=== PATIENT | male | born 1970 | race Caucasian/White ===

== ENCOUNTER → 2023-06-16 06:34 | Day surgery (SDC) | payer MEDICARE, SELFPAY | LOC: GI 06:34 | PROVIDERS: ATTENDING PHYSICIAN Internal Medicine Gastroenterology | DX: Z12.11 Encounter for screening for malignant neoplasm of colon (principal); K64.8 Other hemorrhoids; Q43.8 Other specified congenital malformations of intestine; D12.0 Benign neoplasm of cecum; D12.2 Benign neoplasm of ascending colon; D12.5 Benign neoplasm of sigmoid colon; D12.4 Benign neoplasm of descending colon; D72.820 Lymphocytosis (symptomatic); Z86.010 Personal history of colon polyps; F17.210 Nicotine dependence, cigarettes, uncomplicated | CPT/HCPCS: 45385; 45380; 88305; 88341; 88342 ==

== ENCOUNTER → 2023-09-02 | Outpatient (REF) | payer MEDICARE, SELFPAY | LOC: DHSLP | PROVIDERS: ATTENDING PHYSICIAN Otolaryngology; FAMILY PHYSICIAN Family Medicine | DX: G47.33 Obstructive sleep apnea (adult) (pediatric) (principal) | CPT/HCPCS: 95810 ==

== ENCOUNTER → 2024-01-31 10:41 | Outpatient (REF) | payer MEDICARE, OTHER, SELFPAY | LOC: RAD 10:41 | PROVIDERS: ATTENDING PHYSICIAN Physical Medicine & Rehabilitation; FAMILY PHYSICIAN Family Medicine | DX: M54.2 Cervicalgia (principal); M47.816 Spondylosis without myelopathy or radiculopathy, lumbar region | CPT/HCPCS: 72052; 72110 ==

== ENCOUNTER → 2024-02-04 12:37 | Outpatient (REF) | payer MEDICARE, OTHER, SELFPAY | LOC: RAD 12:37 | PROVIDERS: ATTENDING PHYSICIAN Internal Medicine Critical Care Medicine; FAMILY PHYSICIAN Family Medicine | DX: F17.210 Nicotine dependence, cigarettes, uncomplicated (principal) | CPT/HCPCS: 71271 ==

== ENCOUNTER → 2024-05-23 09:44 | Outpatient (REF) | payer MEDICARE, OTHER, SELFPAY | LOC: RAD 09:44 | PROVIDERS: ATTENDING PHYSICIAN Specialist; FAMILY PHYSICIAN Family Medicine | DX: N20.0 Calculus of kidney (principal) | CPT/HCPCS: 74018; 76775 ==

== ENCOUNTER → 2024-06-07 10:00 | Outpatient (REF) | payer MEDICARE, OTHER, SELFPAY | LOC: RAD 10:00 | PROVIDERS: ATTENDING PHYSICIAN Specialist; FAMILY PHYSICIAN Family Medicine | DX: N20.0 Calculus of kidney (principal) | CPT/HCPCS: 74176 ==

== ENCOUNTER 2024-07-29 21:16 | Inpatient (IN) | payer MEDICARE, OTHER, SELFPAY ==
[2024-07-29 15:56] VITALS: BP 130/74
[2024-07-29 16:12] LABS: % Basophils 0.2 % (0-2); % Immature Granulocytes 0.5 % (0-0.5); % Lymphocytes 17.7 % (20.5-51.1); % Neutrophils 73.6 % (42.2-75.2); Absolute Immature Granulocytes 0.1 10^3/uL (0-0.05); Absolute Lymphocytes 2.9 10^3/uL (1.2-3.4); Absolute Monocytes 1.3 10^3/uL (0.1-0.6); Absolute Neutrophils 12.2 10^3/uL (1.4-6.5); Hematocrit 44.2 % (39.0-52.0); Hemoglobin 15.3 g/dL (13.0-18.0); Mean Corp Hgb Conc. 34.6 g/dL (33.0-37.0); Mean Corpuscular Volume 89.5 fL (80.0-94.0); Mean Platelet Volume 9.1 fL (7.4-10.4); Nucleated Red Blood Cells % 0 % (-); Platelet Count 196 10^3/uL (130-400); Red Blood Cell Count 4.94 10^6/uL (4.70-6.10); Red Cell Dist. Width 14.8 % (11.5-14.5); White Blood Cell Count 16.5 10^3/uL (4.8-10.8)
[2024-07-29 16:43] LABS: ALT (SGPT) 82 U/L (0-50); AST (SGOT) 40 U/L (17-59); Albumin 4.9 g/dl (3.5-5.0); Alkaline Phosphatase 55 U/L (38-126); Blood Urea Nitrogen 24 mg/dl (9-20); Calcium 10.3 mg/dl (8.4-10.2); Carbon Dioxide 20 mmol/L (22-30); Chloride 108 mmol/L (98-107); Glucose 120 mg/dl (70-99); Potassium 4.2 mmol/L (3.5-5.1); Sodium 143 mmol/L (135-145); Total Bilirubin 0.5 mg/dl (0.2-1.3); Total Protein 7.6 g/dl (6.3-8.2); eGFR > 60.00
[2024-07-29 16:51] LABS: Lipase 33 U/L (23-300)
[2024-07-29] MEDS: ZOFRAN 4 MG IV (17:20)
[2024-07-29] MEDS: NSS 1000 IV ×2 (17:20→20:36)
[2024-07-29] MEDS: DILAUDID 0.5 MG IV (17:21)
[2024-07-29] MEDS: OMNIPAQUE 50 ML PO (17:21)
[2024-07-29 17:24] VITALS: BP 124/80
[2024-07-29 18:00] VITALS: BP 96/77
[2024-07-29] MEDS: BENADRYL 50 MG IV (18:31)
[2024-07-29] MEDS: DECADRON 8 MG IV (18:31)
[2024-07-29 19:00] VITALS: BP 135/78
--- NOTE | 2024-07-29 20:09 | ED.GENMED ---
History of Present Illness
General
Chief Complaint: Abdominal Pain
Source: patient
Exam Limitations: none
Time Seen by Provider: 07/29/24 16:27
Nursing documentation reviewed up to this point in time: agreed with
History of Present Illness
History of Present Illness:
Patient to ED with complaint of diffuse abd. pain, vomiting since last PM. Denies fever/chills. No prior history of same. Denies any diarrhea. No sick contacts. Brought self to ED.
Past History
Past History
ED Past Medical History: Hypercholesterolemia and Psychiatric
ED Past Surgical History: None
Social History
Tobacco: Smoker
Alcohol: Occasional
Personal: Single
Living: alone
Family History
Family History: Other
Review of Systems
Review of Systems
Allergies reviewed?: Yes
All Other Systems: ROS reviewed and negative except as documented in HPI and ROS
Constitutional: Reports no symptoms
EENT: Reports no symptoms
Respiratory: Reports no symptoms
Cardiac: Reports no symptoms
ABD/GI: Reports abdominal pain (diffuse) and vomiting
: Reports no symptoms
Musculoskeletal: Reports no symptoms
Skin: Reports no symptoms
Neurological: Reports no symptoms
Psychiatric: Reports no symptoms
Phy Exam
General Physical Exam
General Presentation: moderate distress
General age: appears stated age
General Skin: warm and dry
General Habitus: normal
General Mental: alert
Cardiovascular Exam
Cardiovascular Exam: regular rate/rhythm
Pulmonary Exam
Pulmonary Exam: lungs clear and no respiratory distress
Gastrointestinal Exam
Gastrointestinal Exam: soft, no organomegaly and no pulsatile mass
Palpation: generalized: Moderate tenderness
Musculoskeletal Exam
Musculoskeletal Exam: full ROM and neuro vasc intact
Skin Exam
Skin Exam: normal color, warm/dry and no rash
Psychiatric Exam
Psychiatric Exam: normal mood/affect
Course
Orders/Labs/Results
Orders:
Orders
07/29/24 Dinner
NPO
Allow oral meds: No
Allow clear liquids: No
07/29/24 16:01
Complete Blood Count/With Diff Urgent
Comprehensive Metabolic Panel Urgent
Lipase Urgent
07/29/24 16:44
0.9% Sodium Chloride 1000 ml [Nss] 1,000 ml IV BOLUS
HYDROmorphone [Dilaudid] 0.5 mg IV NOW STA
Ondansetron Injectable [Zofran] 4 mg IV NOW STA
07/29/24 16:52
CT Abd/pel W Iv And Oral Contr Urgent
Comment:
Reason For Exam: diffuse abd. pain vomiting
Iohexol [Omnipaque] See Protocol PO NOW STA
07/29/24 16:53
Diphenhydramine [Benadryl] 50 mg IV NOW STA
07/29/24 16:57
Dexamethasone Sod Phosphate [Decadron] 8 mg IV NOW STA
07/29/24 20:21
Consult Surgery [SURGICAL CONSULT] Urgent
Consulting Provider: Jersey Trimble
Was physician already notified: Yes
07/29/24 20:27
NG Tube [GI tube insertion- Treatment] ONCE
07/29/24 20:30
0.9% Sodium Chloride 1000 ml [Nss] 1,000 ml IV 125 mls/hr
07/29/24 20:42
Lactic Acid Urgent
07/29/24 20:47
Admit/Transfer Patient As Directed
Co-Sign Provider:
Level of Care: Inpatient admission
Assign to:: Medical/Surgical
Physician / Group: hospitalist
Diagnosis: small bowel obstruction
Reason for Hospitalization: small bowel obstruction
Expected length of stay greater than two midnights?: Yes
ELOS- Estimated Length of Stay in days: 2
I certify the patient meets the requirements for IP care: Yes
PRN Pain Medication Management As Directed
May give lesser potent ordered pain med per pt: Yes
preference::
Protocol:: Medication orders for pain may be administered in a
manner that supports deferring to patient preference
when the pt is:
- Requesting an ordered lesser potent pain medication.
Least to most potent pain medications are defined
as: acetaminophen < NSAID < tramadol < opioids
(morphine, oxycodone, hydromorphone).
- Requesting a lesser dose of the same medication IF
ORDERED.
- Requesting a less intrusive route of administration
if both routes are prescribed by the provider (PO <
IV).
07/29/24 20:48
Code Status As Directed
Resuscitation Status: Full Code
07/29/24 21:08
CR Chest Portable - 1 View Stat
Comment:
Reason For Exam: NG tube placement
Reason Study Needs to be Portable: Other
If Reason is Other, explain: can't transport, connected to wall suction
07/29/24 22:05
Acetaminophen [Tylenol/Feverall] 650 mg RECTAL Q4HPRN PRN
HYDROmorphone [Dilaudid] 0.5 mg IV Q4HPRN PRN
Ketorolac [Toradol] 10 mg IV Q6HPRN PRN
Lactated Ringers [Lr] 1,000 ml IV 150 mls/hr
Ondansetron Injectable [Zofran] 4 mg IV Q6HPRN PRN
Tamsulosin [Flomax] 0.8 mg TUBE HS
Valproate Sodium [Depacon] 1,000 mg 0.9% Sodium Chloride 50 ml [Nss] 50 ml IV Q12H
07/29/24 22:05
Activity As Directed
Activity Level: With Assistance
Bedside Glucose Monitoring As Directed
Frequency: Q6H
Gastrointestinal Tubes As Directed
To suction?: Yes
Type of suction: Low intermittent
Vital Signs As Directed
Frequency: Per unit guidelines
Pulse Ox/spot Check [RESP] Routine
Quantity: 1
DX Deep Vein Thrombosis Video Routine
07/29/24 23:00
Clozapine [Clozaril] 600 mg TUBE HS
07/30/24 00:00
Heparin 5,000 units SC Q8
Insulin Aspart Corrective Low [Novolog Flexpen-Low Resistance] See Protocol SC Q6
07/30/24 06:00
Basic Metabolic Panel IN AM
Complete Blood Count/No Diff IN AM
Magnesium IN AM
07/30/24 08:00
Pantoprazole [Protonix IV] 40 mg IV DAILY
Abnormal Lab Results
07/29/24
16:01
WBC 16.5 H 10^3/uL
(4.8-10.8)
RDW 14.8 H %
(11.5-14.5)
Abs Immat Gran (auto) 0.1 H 10^3/uL
(0-0.05)
Absolute Neuts (auto) 12.2 H 10^3/uL
(1.4-6.5)
Absolute Monos (auto) 1.3 H 10^3/uL
(0.1-0.6)
Lymphocytes % 17.7 L %
(20.5-51.1)
Chloride 108 H mmol/L
(98-107)
Carbon Dioxide 20 L mmol/L
(22-30)
BUN 24 H mg/dl
(9-20)
Glucose 120 H mg/dl
(70-99)
Calcium 10.3 H mg/dl
(8.4-10.2)
ALT 82 H U/L
(0-50)
07/29/24 16:01
07/29/24 16:01
Vital Signs
Initial and Last Documented VS:
Initial Vital Signs
Temp Pulse Resp BP Pulse Ox
98.5 F 116 18 130/74 98
07/29/24 15:56 07/29/24 15:56 07/29/24 15:56 07/29/24 15:56 07/29/24 15:56
Last Documented Vital Signs
Temp Pulse Resp BP Pulse Ox
98.7 F 94 16 133/79 95
07/29/24 22:25 07/29/24 22:25 07/29/24 22:25 07/29/24 22:25 07/29/24 22:25
*Radiology
Radiology exam reviewed: radiology read reviewed
*Pulse Oximetry
Patient hypoxic: no
*Critical Care Note
Total Time (30-74mins, 75-104mins- exclusive of procedures): Not Applicable
Update Note
Update Note:
Patient to ED with complaint of vomiting x 24 hours, diffuse abd. pain. Labs reviewed. WBC 16. CT tonight: SBO. He has received IVF, zofran, pain meds in ED. No vomiting while in ED, however abd. distention noted on CT report, NGT placed. He
is admitted to hospitalist service. Dr. Trimble consulted
ED Attending Note
-
Portions of this chart may have been created with voice recognition software.� Occasional wrong word or��sound alike� substitutions may have occurred due to the inherent limitations of voice recognition software.
Discharge Plan
Departure
Patient Disposition: Admit
Date of Disposition: 07/29/24
Time of Disposition: 20:17
Presentation/result/management discussed w/ accepting MD/DO: Hospitalist
Condition: Fair
Covid-19: Not Applicable
Discharge Problem:
SBO (small bowel obstruction)
Interventions
Interventions:
*Risk Screen - Suicide Last Done: 07/29/24 15:56
*General Assessment Last Done: 07/29/24 15:56
*Neglect/Abuse Screening Last Done: 07/29/24 15:56
*ED- Fall Risk Assessment Last Done: 07/29/24 15:56
*ED COVID-19 Vaccine History Last Done: 07/29/24 15:56
*Nursing Disposition Last Done: 07/29/24 21:55
DN-Bawfpj-Yfkjvnkeyj Assessment Last Done: 07/29/24 17:11
Discharge Date and Time
Discharge Date/Time: 07/29/24 21:55
--- NOTE | 2024-07-29 20:27 | HPS.HSE ---
Family Physician
-
Family Physician: Doni Sheth
Chief Complaint
-
Vomiting and abdominal pain
History of Present Illness
This is a 54-year-old with past medical history significant for schizophrenia, hypertension, asthma, nephrolithiasis presenting to the emergency department with approximately 1 day history of abdominal symptoms.
Patient reports sudden onset of abdominal pain localized to the periumbilical region. He states there was associated nausea and vomiting. He tells me that the vomiting was nonbloody. It appears to be bilious but he is unable to specify further.
He did take some MiraLAX open to improve his symptoms but there was no improvement. He denies having any fevers or chills.
Patient denies any alcohol use. He denies history of gallstones. He denies any history of intra-abdominal surgery. He has no known history of inflammatory bowel disease. He denies any cardiac history.
On arrival in the emergency department he was afebrile, blood pressure was 135/78 with a pulse of 116 and he was satting 98% on room air. He had a white count of 16.5, hemoglobin platelets were normal. Electrolytes were all normal. BUN/creatinine
were normal. Calcium was elevated 10.3. Albumin was 4.9. LFTs unremarkable. Lipase normal.
CT of the abdomen pelvis shows small bowel obstruction with transition point in the right side of the mid abdomen between distended proximal small bowel loops and collapsed distal ileal small bowel loops. And that there is a band is still likely
etiology of the obstruction. There is severe distention of the jejunal small bowel loops and the stomach.
Medical History
Past Medical History
Past Medical History: Reports Asthma, Hypercholesterolemia, Psychiatric (Schizophrenia) and Other (Nephrolithiasis)
Past Surgical History: Reports Tonsilectomy ( plus uvulectomy for sleep apnea) and Other (Tongue resection)
Social History
Tobacco: Smoker (1 ppd)
Alcohol: None
Drug: None
Personal: Single
Family History
Family History: Not pertinent
Allergies / Home Medications
Allergies reflects when Allergies were last updated in [employer].
Home Medications with original date entered in [employer]
Allergy/Medication List:
Allergies
Allergy/AdvReac Type Severity Reaction Status Date / Time
haloperidol [From Haldol] Allergy jaw locks Verified 07/29/24 15:56
haloperidol lactate Allergy jaw locks Verified 07/29/24 15:56
[From Haldol]
Iodinated Contrast Media Allergy CONTRAST-HI Verified 07/29/24 15:56
[IV Dye, Iodine Containing VES
Contrast ]
lithium [[place]] Allergy 'feels Verified 07/29/24 15:56
sick'
can't sleep
olanzapine [From Zyprexa] Allergy hyperactivi Verified 07/29/24 15:56
ty
Penicillins Allergy 'doesn't Verified 07/29/24 15:56
feel well'
quetiapine fumarate Allergy 'feels Verified 07/29/24 15:56
[From Seroquel] sick'
can't sleep
risperidone [From Risperdal] Allergy 'doesn't Verified 07/29/24 15:56
feel
well',
can't sleep
Home Medications
clozapine 100 mg tablet 600 mg PO HS 09/04/11
docusate sodium 100 mg capsule 100 mg PO BID 10/29/11
M.V.I. Adult 1 tab PO DAILY 07/29/24
Miralax 17 packet PO DAILY 07/29/24
clozapine 600 mg PO HS 07/29/24
divalproex 500 mg tablet,extended release 24 hr 1,000 mg PO BID 07/29/24
glipizide 5 mg tablet 5 mg PO BID 07/29/24
lisinopril 5 mg PO DAILY 07/29/24
methocarbamol 500 mg PO BID 07/29/24
rosuvastatin 10 mg PO DAILY 07/29/24
tamsulosin 0.8 mg PO DAILY@1800 07/29/24
Review of Systems
-
History Source: Patient
Constitutional: Reports No Symptoms
EENT: Reports No Symptoms
Respiratory: Reports No Symptoms
Cardiac: Reports No Symptoms
Abdomen/GI: Reports Abdominal Pain and Vomiting
: Reports No Symptoms
Musculoskeletal: Reports No Symptoms
Skin: Reports No Symptoms
Neurological: Reports No Symptoms
Endocrine: Reports No Symptoms
Hematologic/Lymphatic: Reports No Symptoms
Psych: Reports No Symptoms
Physical Exam
Vital Signs
Vital Signs
Temp Pulse Resp BP Pulse Ox
98.5 F 116 18 135/78 98
07/29/24 15:56 07/29/24 15:56 07/29/24 15:56 07/29/24 19:00 07/29/24 15:56
Physical Exam
General: Well Developed, Well Nourished, No Apparent Distress and Comfortable
HEENT: NormoCephalic, Anicteric, Moist mucous membranes and Atraumatic
Respiratory: Clear
Cardiac: S1/S2 and Tachycardia
Breast: Deferred by me
GI: Non Tender and Non Distended; No Normal Bowel Sounds (Decreased bowel sounds noted throughout)
Rectal: Deferred by Provider
Genito-urinary: Deferred by me
Musculoskeletal: No Clubbing, No Cyanosis and No Edema
Skin: Warm
Neuro: AO x 3 and Nonfocal/grossly intact
Hematologic/Lymphatic: No Lymphadenopathy
Psych: Calm
Laboratory Results
-
07/29/24 16:01
07/29/24 16:01
Laboratory Results
Total Bilirubin 0.5 mg/dl (0.2-1.3) 07/29/24 16:01
AST 40 U/L (17-59) 07/29/24 16:01
ALT 82 U/L (0-50) H 07/29/24 16:01
Alkaline Phosphatase 55 U/L (38-126) 07/29/24 16:01
Lipase 33 U/L (23-300) 07/29/24 16:01
Data Reviewed
-
CT Scan: Report Reviewed by me
Lab Data: Labs Reviewed by me
Old Records: Reviewed
Impression/Plan
-
IMPRESSION:
54-year-old with history of asthma, schizophrenia on antipsychotic medications who presents to the emergency department with acute onset of abdominal pain and vomiting found to have a small bowel obstruction. Per CT scan the small bowel obstruction
is on the basis of adhesion. However patient denies any history of intra-abdominal surgery. He had a colonoscopy within the last year which showed polyps but otherwise no evidence of intermittent inflammatory bowel disease. Patient denies
inflammatory bowel disease symptoms. Patient denies any history of congenital disorders. In no clinical basis for additions in this patient. Radiology is mildly considered. However he has no signs of inflammatory bowel disease. He has no signs
of an acute infection. There are no masses noted on the CT scan. Given a transition point unlikely ileus and no basis for ileus with negative gallstones normal pancreas and normal lipase and lfts as well as no culprit medications.
PLAN:
SBO -thought to be in the base of adhesions but no clinical history consistent with this. No intussusception and no other obstructive/compressive findings on the CT scan. No history of peripheral arterial disease but cannot rule out an ischemic
process though very unlikely.
- admit to med surg
- check lactic acid levels
- given degree of distension of the proximal gi, will start NG tube decompression
- NPO except selected meds (clozapine), pain control and antiemetics
- other meds as IV or appropriately held
- maintenance IV fluids
- surgery consulted and aware
Schizophrenia - Stable
- continue clozapine 600mg hs via tube with appropriate clamping
- valproic acid as IV q 12 for divalproex 1g po q 12
DM II
- holding glipizide and statin
- sliding scale insulin q 6
HTN
- holding lisinopril 5 for now, monitor bp
DVT PPX - heparin sq
Code status - Full Code
[2024-07-29 21:03] LABS: Lactic Acid 0.7 mmol/L (0.7-2.0)
[2024-07-29 22:25] VITALS: BP 133/79
[2024-07-29] MEDS: CLOZARIL 600 MG TUBE (22:45)
[2024-07-29] MEDS: FLOMAX 0.8 MG TUBE (22:45)
[2024-07-29] MEDS: LR 1000 IV (22:54)
[2024-07-29] MEDS: DEPACON 60 MG IV (22:58)
[2024-07-29 23:12] LABS: Glucose - Point of Care 132 mg/dl (70-99)
[2024-07-29 23:47] VITALS: BP 146/84
--- NOTE | 2024-07-30 | PTCARENOTE ---
Pt arrived 2109 from ED. Pt was able to ambulate into room. VSS. NGT to low intermittent suction at 65. IVF infusing. Head to toe assessment complete along with admission questions. Upon admission screening Pt had positive suicide screening. García
SECONDARY HISTORY TEACHER notified, and 1:1 implemented.
--- NOTE | 2024-07-30 00:10 | W.PN.UPDATE ---
Update Note
Progress Note Update
Patient asked suicide screening questions by RN on admission to floor, scored as mild risk. Orders placed for 1:1 and psych evaluation. RN notified Nursing distribution operation supervisor, 1:1 sent and at bedside.
[2024-07-30] MEDS: HEPARIN 5000 UNITS SC ×4 (00:17→23:14)
[2024-07-30 05:32] LABS: Glucose - Point of Care 119 mg/dl (70-99)
[2024-07-30] MEDS: LR 1000 IV ×3 (06:17→20:32)
[2024-07-30 06:30] LABS: Hematocrit 39.3 % (39.0-52.0); Hemoglobin 13.5 g/dL (13.0-18.0); Mean Corp Hgb Conc. 34.4 g/dL (33.0-37.0); Mean Corpuscular Hgb 31.1 pg (27.0-31.0); Mean Corpuscular Volume 90.6 fL (80.0-94.0); Mean Platelet Volume 9.9 fL (7.4-10.4); Platelet Count 171 10^3/uL (130-400); Red Blood Cell Count 4.34 10^6/uL (4.70-6.10); Red Cell Dist. Width 14.7 % (11.5-14.5); White Blood Cell Count 11.9 10^3/uL (4.8-10.8)
[2024-07-30 07:15] VITALS: BP 125/66
[2024-07-30 07:20] LABS: Blood Urea Nitrogen 22 mg/dl (9-20); Calcium 9.2 mg/dl (8.4-10.2); Carbon Dioxide 24 mmol/L (22-30); Chloride 107 mmol/L (98-107); Glucose 109 mg/dl (70-99); Magnesium 1.9 mg/dl (1.6-2.3); Potassium 4.5 mmol/L (3.5-5.1); Sodium 143 mmol/L (135-145); eGFR > 60.00
[2024-07-30] MEDS: PROTONIX IV 40 MG IV (08:12)
[2024-07-30] MEDS: NSS (PRESERVATIVE FREE) 10 ML IV (08:13)
--- NOTE | 2024-07-30 08:51 | W.PN.HOSP.TC ---
Addendum entered and electronically signed by Cody Abbasi MD 07/30/24 09:06:
positive suicidal ideation on admission screening
- 1:1 continues
- psych consulted
Original Note:
Today's Communication/Plan
-
see outlined plan
Assessment / Plan
Assessment / Plan
Assessment:
distended proximal bowel loops and stomach
- possible SBO raised by CT read: SMALL BOWEL OBSTRUCTION with a transition point in the right side of the midabdomen between distended proximal small bowel loops and collapsed distal ileal small bowel loops. An adhesive band is the likely etiology
of the obstruction. Severe distention of jejunal small bowel loops and the stomach.
- no prior history to suggest adhesional disease (no surgery prior)
- d/w Gen surgery
- conservative management
- continue NGT
- NPO/IVF. select meds ok
- pain control and anti-emetics
- AXR today and SBFT in AM
Schizophrenia - Stable
- continue clozapine 600mg hs via tube with appropriate clamping
- valproic acid as IV q 12 for divalproex 1g po q 12
DM II
- holding glipizide and statin
- sliding scale insulin q 6
- A1c:
HTN
- holding lisinopril 5 for now, monitor bp
DVT PPX: SC heparin
Code: Full
Anticipated Discharge: > 48 hours
Subjective/Interval History
-
Date of Service: July 30, [address]
reports minimal pain
no nausea
no fevers
Objective Data
-
Labs:
Laboratory Results
07/30/24
05:09
WBC 11.9 H
Hgb 13.5
Hct 39.3
Plt Count 171
Sodium 143
Potassium 4.5
Chloride 107
Carbon Dioxide 24
BUN 22 H
Creatinine 0.8
Glucose 109 H
Calcium 9.2
Vital Signs:
Vital Signs
Temp Pulse Resp BP Pulse Ox
97.9 F 92 16 125/66 98
07/30/24 07:15 07/30/24 07:15 07/30/24 07:15 07/30/24 07:15 07/30/24 07:15
I&O
07/29/24 07/30/24 07/31/24
06:59 06:59 06:59
Intake Total 1550 / 1550
Output Total 1675 / 1675
Balance -125 / -125
Physical Exam
-
General: No Apparent Distress
HEENT: Normocephalic and Atraumatic
Respiratory: Negative Wheezes
Cardiac: Regular Rhythm and S1/S2
GI: Soft and Nontender
Genito-urinary: No Costovertebral Tender
Neuro: AO x 3
Psych: Calm
Data Reviewed
-
Total Time Spent with Patient (in minutes): 42
Labs: Labs Reviewed by me
--- NOTE | 2024-07-30 10:15 | CON.GS ---
Consultation
-
Date/Time Consultation Performed: 07/30/2024
Performing Provider: Atilio
Reason for Consultation: Small bowel obstruction
Medical History
-
Chief Complaint: Abdominal pain, nausea vomiting
History of Present Illness:
Patient is a pleasant 54-year-old male who presented to the emergency department for evaluation of worsening abdominal pain, distention and nausea/vomiting.
His medical history is mainly notable for schizophrenia/psychiatric for which he follows at [facility]. He states that the only recent change in his medications has been with his muscle relaxant methocarbamol dose that has been recently increased.
He seems to be able to provide an accurate/reliable history indicating that over the last week or so he has been having slowly progressive GI symptoms. It started with change in bowel habits and not having as regularly. He typically takes MiraLAX
daily which he has continued to do. Over the past couple days he has developed anorexia and nausea and worsening abdominal distention rather gradual in onset. It progressed into severity yesterday that he presented for emergency department
evaluation due to diffuse abdominal pain and subsequent nausea and vomiting.
No similar episode like this in the past. No past abdominal surgical history.
Patient states he is feeling much better this a.m. after NG tube decompression. Abdominal pressure has subsided. Denies abdominal pain. No further nausea or vomiting. No flatus or bowel movements reported overnight.
Past Medical History
Past Medical History: Other (Schizophrenia, hypercholesterolemia, history of nephrolithiasis)
Past Surgical History: Other (Ureteroscopy/ESWL, resection of a tongue lesion, adenoidectomy, tonsil and uvulectomy for sleep apnea, myringotomy tubes)
Social History
Tobacco: Vaping
Personal: Single
Living: With Roomate
Family History
Family History: Reviewed & Not Pertinent
Allergies / Home Medications
Allergy/AdvReac Type Severity Reaction Status Date / Time
haloperidol [From Haldol] Allergy jaw locks Verified 07/29/24 15:56
haloperidol lactate Allergy jaw locks Verified 07/29/24 15:56
[From Haldol]
Iodinated Contrast Media Allergy CONTRAST-HI Verified 07/29/24 15:56
[IV Dye, Iodine Containing VES
Contrast ]
lithium [[place]] Allergy 'feels Verified 07/29/24 15:56
sick'
can't sleep
olanzapine [From Zyprexa] Allergy hyperactivi Verified 07/29/24 15:56
ty
Penicillins Allergy 'doesn't Verified 07/29/24 15:56
feel well'
quetiapine fumarate Allergy 'feels Verified 07/29/24 15:56
[From Seroquel] sick'
can't sleep
risperidone [From Risperdal] Allergy 'doesn't Verified 07/29/24 15:56
feel
well',
can't sleep
�Medication �Instructions �Recorded �Confirmed �Type
clozapine 100 mg tablet 600 mg PO HS 09/04/11 10/29/11 History
docusate sodium 100 mg capsule 100 mg PO BID 10/29/11 07/29/24 History
M.V.I. Adult 1 tab PO DAILY 07/29/24 07/29/24 History
Miralax 17 packet PO DAILY 07/29/24 07/29/24 History
clozapine 600 mg PO HS 07/29/24 07/29/24 History
divalproex 500 mg tablet,extended 1,000 mg PO BID 07/29/24 07/29/24 History
release 24 hr
glipizide 5 mg tablet 5 mg PO BID 07/29/24 07/29/24 History
lisinopril 5 mg PO DAILY 07/29/24 07/29/24 History
methocarbamol 500 mg PO BID 07/29/24 07/29/24 History
rosuvastatin 10 mg PO DAILY 07/29/24 07/29/24 History
tamsulosin 0.8 mg PO DAILY@1800 07/29/24 07/29/24 History
Review of Systems
-
History Source: Patient
All other systems: Negative unless noted
A 10 point review of systems was completed, and was negative except as per HPI.
Physical Exam
Vital Signs
Temp Pulse Resp BP Pulse Ox
97.9 F 92 16 125/66 98
07/30/24 07:15 07/30/24 07:15 07/30/24 07:15 07/30/24 07:15 07/30/24 07:15
07/29/24 07/30/24 07/31/24
06:59 06:59 06:59
Actual Weight 119 kg
Lab Results
07/30/24 05:09
07/30/24 05:09
WBC 11.9 10^3/uL (4.8-10.8) H 07/30/24 05:09
Hgb 13.5 g/dL (13.0-18.0) 07/30/24 05:09
Hct 39.3 % (39.0-52.0) 07/30/24 05:09
Plt Count 171 10^3/uL (130-400) 07/30/24 05:09
Abs Immat Gran (auto) 0.1 10^3/uL (0-0.05) H 07/29/24 16:01
Neutrophils % 73.6 % (42.2-75.2) 07/29/24 16:01
Physical Exam
General: Well Developed, Well Nourished, No Apparent Distress, Comfortable and Other (Lying in hospital bed. Pleasant and participatory for history taking.)
HEENT: Normocephalic, Anicteric, Moist Mucous Membranes and Other (Nasogastric tube in place and secured)
Respiratory: Non Labored Respirations
Cardiac: Regular Rhythm
GI: Soft, Non Distended and Tender (Slight tenderness on palpation but not localizing. No rebound, no rigidity, no guarding.)
Skin: Warm
Neuro: AO x 3
Psych: Calm
Data Reviewed
-
CT Scan: Image Personally Visualized and interpreted, Report Reviewed by me, Discussed with Physician and Discussed with Patient
Labs: Labs Reviewed by me
Assessment / Plan
-
Assessment: 54-year-old male presenting with symptoms and CT imaging suggestive of small bowel obstruction versus ileus.
Personally reviewed and interpreted CT imaging. Significant gastric and proximal small bowel distention. While there does appear to be a transition point probably in the right lower quadrant I do not see any abrupt transition rather there seems to
be smooth distal tapering to decompressed small bowel. There is no swirling of the mesentery suggestive of internal hernia or volvulus. There is no pneumatosis, portal venous gas or mesenteric venous gas. There is no small bowel wall thickening.
No free air. No free fluid/ascites.
White blood cell count has improved to 11.9, there is no bandemia. Chemistry panel without acidosis, normal creatinine. Lactic acid normal yesterday evening. Lipase normal.
There are no clinical signs of immediate bowel compromise or threat and patient has significantly improved with NG tube decompression and IV fluid hydration overnight. Given clinical stability there are no strong indications for emergent/urgent
surgical intervention. Uncertain etiology to the patient's presentation whether it is related to adhesions in the setting of no prior abdominal surgery versus adynamic ileus which may be medication related.
Plan: Recommend continued aggressive IV fluid hydration
Maintain NG tube decompression but okay to give important psychiatric meds via NG tube and clamp
Will obtain abdominal x-ray today to see if there is progression of oral contrast from yesterday's films into the distal small bowel or colon.
Subsequent surgical plan depending course over the next 24 hours. If there are high NG tube outputs or symptoms suggestive of persistent high-grade obstruction then would consider diagnostic laparoscopy. If clinical improvement then we will likely
pursue small bowel follow-through imaging.
Will follow
Discussed with hospitalist service as well.
Called and left left voicemail message for patient's sister Lori as per patient's request
--- NOTE | 2024-07-30 10:49 | CM ---
restaurant hourly manager reviewed patient's chart and met with patient and patient reports that he made a mistake when he answered suicide questions as he was feeling poorly. Patient is a resident at [facility] residential program. Patient reports
he is independent with adl's and ambulation, no dme.
PCP: Dr. Doni Sheth
Pharmacy: [facility]
Plan; Await psychiatry evaluation for any needs at discharge.
[2024-07-30 11:15] VITALS: BMI 34.6
[2024-07-30] MEDS: DEPACON 60 MG IV ×2 (11:50→21:53)
[2024-07-30 12:01] LABS: Glucose - Point of Care 107 mg/dl (70-99)
[2024-07-30] MEDS: NICODERM TRANSDERMAL 21 MG TRANSDERM (12:23)
--- NOTE | 2024-07-30 13:35 | CON.MD ---
Consultation - Medical
-
patient seen chart reviewed. this consult was ordered given patient response to suicide screening. he indicated he had had vague thoughts but denied to me that he has acted or would ever act on suicidality. 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 he
is here bc abd pain n/v. he was found to have bowel blockage likely secondary to fecal matter .clozaril is notoriously constipating and he is taking 600 mg. he does say he takes miralax regularly. patient was poeasant and cooperative but he was
not a great historian. i do know he last saw the act team a few days ago. he has hx of psychotic illness but in talking to him i could not get a handle on the sx he has suffered eg hallucinations delusions etc. he answered no to my ? of hearing
voices and seemed more preoccupied with being rather dysphoric. sleep is ok appetite is ok. he enjoys some activities. current meds depakote 1000 mg bid clozaril 600 mg daily he does not know if a blood level of these meds was done recently.
past psych hx patient has been hospitalized in the past last about 2.5 years ago has been out pt w [facility] since them act programming allergy seroquel lithium zyprexa haldol risperdone allegedly
medical see above here for gi blockage likely in my opinion from clozaril particularly. hx hld asthma nephrolithiasis hx prostatis gerd lynn lumbar cervical pain hx tongue ca colonic polyps overweight
fh denied
substance abuse was a smoker
social resides in [employer]. 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 never no kids
mse alert ox3 cooperative not a great historian. speech nl rate tone. goal oriented but he seems to be a man of relatively few words paucity of expression can be a sx of psychotic illness aver intell mood is dysphoric affect constricted insight
judgment fair
dx schizophrenia
plan i called mr tuttle psych prescriber. no answer left message. would cut clozaril to 450 mg. level already drawn but will take more than a week to come back. manager programs also mila depakote level but since he had it this am it was be
elevated.will repeat in am. will speak to mr page re patient meds/gi obstruction. unclear if depakote needed w high dose of clozaril. dc one to one. patient is not acutely suicidal. psych will follow.
[2024-07-30 14:01] LABS: Depakane 66.8 ug/ml (50.0-120.0)
[2024-07-30 15:00] VITALS: BP 147/81
[2024-07-30 18:06] LABS: Glucose - Point of Care 101 mg/dl (70-99)
--- NOTE | 2024-07-30 18:31 | PTCARENOTE ---
'Medications Brought In By Patient' form completed, brought to pharmacy, per instructions white copy stored in Pharmacy, yellow copy placed in patient's discharge folder (in chart) as a reminder to return meds to patient at discharge.
[2024-07-30] MEDS: CLOZARIL 450 MG TUBE (22:13)
[2024-07-30] MEDS: FLOMAX 0.8 MG TUBE (22:18)
[2024-07-30 22:21] LABS: Glucose - Point of Care 104 mg/dl (70-99)
[2024-07-30 23:03] VITALS: BP 107/52
[2024-07-31] MEDS: LR 1000 IV ×3 (04:16→20:32)
[2024-07-31 06:13] LABS: Glucose - Point of Care 92 mg/dl (70-99)
[2024-07-31 07:30] VITALS: BP 136/79
--- NOTE | 2024-07-31 07:52 | W.PN.GS2 ---
Addendum entered and electronically signed by Sd Rivera MD 07/31/24 15:43:
I saw and examined the patient independently.
The resident's documentation was reviewed and I agree with the note, assessment and plan except where noted below.
Comment: This is a 54-year-old male with a history of schizophrenia who presents with abdominal pain, nausea vomiting, imaging concerning for partial small bowel obstruction versus ileus. Clinically improved, repeat abdominal plain film today shows
contrast into the colon.
Will keep an NG tube for 1 more day.
Out of bed and ambulate.
Anticipate removing NG tube tomorrow and starting on clears.
I suspect this is most likely an ileus secondary to an increase in the dose of his muscle relaxing medication.
I spent 50 minutes in total for the care of this patient today including direct patient care and counseling, reviewing labs, imaging, coordination of care, as well as documentation.
Original Note:
Today's Communication / Plan
-
SBFT
Assessment / Plan
-
54 y/o male presents with partial SBO
AFVSS
Passing gas and appears to be doing much better than yesterday
WBC downtrending
Plan:
--NG tube for bowel decompression and bowel rest - allow NG tube clamp for psych meds
--NPO
--IV fluids
--Pain meds
--Small Bowel follow through to eval SBO further as he has improved clinically significantly from yesterday
--Cont with conservative measurements
Subjective Data
-
Date of Service: July 31, 2024
Now passing gas, but no BM. No N/V and ab pain controlled. Overall feels much better than before.
Objective Data
-
Intake and Output
07/30/24 07/31/24 08/01/24
06:59 06:59 06:59
Intake Total 1550 / 1550 270 / 270
Output Total 1675 / 1675 1675 / 1675 300 / 300
Balance -125 / -125 -1405 / -1405 -300 / -300
Intake:
IV fluids (Total) 1500 / 1500
IV piggybacks 50 / 50 60 / 60
Amount instilled into GI Tube ( 210 / 210
Total)
[place] Sump 210 / 210
Output:
Gastrointestinal tube output ( 1175 / 1175 525 / 525
Total)
[place] Sump 175 / 175 525 / 525
Urine, Voided 500 / 500 1150 / 1150 300 / 300
Vital Signs
Temp Pulse Resp BP Pulse Ox
98.3 F 82 18 136/79 96
07/31/24 07:30 07/31/24 07:30 07/31/24 07:30 07/31/24 07:30 07/31/24 07:30
Calcium 9.2 mg/dl (8.4-10.2) 07/30/24 05:09
Magnesium 1.9 mg/dl (1.6-2.3) 07/30/24 05:09
Total Bilirubin 0.5 mg/dl (0.2-1.3) 07/29/24 16:01
AST 40 U/L (17-59) 07/29/24 16:01
ALT 82 U/L (0-50) H 07/29/24 16:01
Alkaline Phosphatase 55 U/L (38-126) 07/29/24 16:01
Total Protein 7.6 g/dl (6.3-8.2) 07/29/24 16:01
Albumin 4.9 g/dl (3.5-5.0) 07/29/24 16:01
Physical Exam
-
NAD
NG 525 overnight, dark bilious fluid
Slight tenderness on palpation, distended ab.
[2024-07-31] MEDS: NICODERM TRANSDERMAL 21 MG TRANSDERM (08:08)
[2024-07-31] MEDS: HEPARIN 5000 UNITS SC ×2 (08:09→17:16)
[2024-07-31] MEDS: NSS (PRESERVATIVE FREE) 10 ML IV (08:09)
[2024-07-31] MEDS: PROTONIX IV 40 MG IV (08:10)
[2024-07-31 08:54] LABS: Hematocrit 37.6 % (39.0-52.0); Hemoglobin 12.8 g/dL (13.0-18.0); Mean Corpuscular Hgb 30.8 pg (27.0-31.0); Mean Corpuscular Volume 90.4 fL (80.0-94.0); Mean Platelet Volume 9.4 fL (7.4-10.4); Platelet Count 166 10^3/uL (130-400); Red Blood Cell Count 4.16 10^6/uL (4.70-6.10); Red Cell Dist. Width 14.6 % (11.5-14.5); White Blood Cell Count 11.4 10^3/uL (4.8-10.8)
[2024-07-31 09:31] LABS: Depakane 40.4 ug/ml (50.0-120.0)
[2024-07-31 09:35] LABS: Blood Urea Nitrogen 17 mg/dl (9-20); Calcium 9.3 mg/dl (8.4-10.2); Carbon Dioxide 26 mmol/L (22-30); Chloride 111 mmol/L (98-107); Estimated Creatinine Clearance > 125 ml/min; Glucose 86 mg/dl (70-99); Sodium 142 mmol/L (135-145); eGFR > 60.00
[2024-07-31] MEDS: DEPACON 60 MG IV ×2 (10:17→22:23)
[2024-07-31 12:43] LABS: Glucose - Point of Care 83 mg/dl (70-99)
--- NOTE | 2024-07-31 13:05 | CM ---
CM reviewed medical records. Patient remains acutely ill. CM will continue to follow as needed.
PLAN: Return home
--- NOTE | 2024-07-31 14:38 | W.PN.HOSP.TC ---
Today's Communication/Plan
-
Continue NG tube monitoring output.
For small bowel follow-through tomorrow.
Okay to clamp tube for psych meds.
IV Depakote.
Insulin sliding scale holding oral glucose lowering medications
Assessment / Plan
Assessment / Plan
Assessment:
distended proximal bowel loops and stomach
- possible SBO raised by CT read: SMALL BOWEL OBSTRUCTION with a transition point in the right side of the midabdomen between distended proximal small bowel loops and collapsed distal ileal small bowel loops. An adhesive band is the likely etiology
of the obstruction. Severe distention of jejunal small bowel loops and the stomach.
- no prior history to suggest adhesional disease (no surgery prior)
Reports improvement of nausea, vomiting while NG tube in place.
Improved abdominal distention and pain.
Follow-up imaging with x-ray with nonobstructive gas pattern.
Attempt to perform small bowel follow-through today, although still with remnants of contrast given for CT scan on 07/29
Continue NG tube
Continue IV fluids
Likely to repeat small bowel follow-through tomorrow
Schizophrenia - Stable
- continue clozapine 600mg hs via tube with appropriate clamping
- valproic acid as IV q 12 for divalproex 1g po q 12
DM II
- holding glipizide and statin
- sliding scale insulin q 6
- A1c:
HTN
- holding lisinopril 5 for now, monitor bp
DVT PPX: SC heparin
Code: Full
Anticipated Discharge: 24 - 48 hours
Subjective/Interval History
-
Date of Service: July 31, 2024
Objective Data
-
Labs:
Laboratory Results
07/31/24
08:18
WBC 11.4 H
Hgb 12.8 L
Hct 37.6 L
Plt Count 166
Sodium 142
Potassium 4.0
Chloride 111 H
Carbon Dioxide 26
BUN 17
Creatinine 0.8
Glucose 86
Calcium 9.3
Vital Signs:
Vital Signs
Temp Pulse Resp BP Pulse Ox
98.3 F 82 18 136/79 96
07/31/24 07:30 07/31/24 07:30 07/31/24 07:30 07/31/24 07:30 07/31/24 07:30
I&O
07/30/24 07/31/24 08/01/24
06:59 06:59 06:59
Intake Total 1550 / 1550 270 / 270
Output Total 1675 / 1675 1675 / 1675 300 / 300
Balance -125 / -125 -1405 / -1405 -300 / -300
Physical Exam
-
General: Well Developed and No Apparent Distress
HEENT: Normocephalic, Atraumatic and Moist Mucous Membranes
Respiratory: Clear to Auscultation
Cardiac: Regular Rhythm and S1/S2; Negative Murmur, Rub or Gallop
GI: Soft, Nontender, Nondistended, Normal Bowel Sounds and Other (NG tube in place); Negative Organomegaly
Rectal: Deferred by Provider
Musculoskeletal: No Clubbing, No Cyanosis and No Edema
Skin: Negative Rash
Neuro: Nonfocal/Grossly Intact
--- NOTE | 2024-07-31 15:56 | PTCARENOTE ---
At change of shift, patients NGT in R nares at 60 cm marking with light brown drainage. Patient remains at 60 cm marking.
[2024-07-31 15:58] VITALS: BP 141/78
[2024-07-31 17:46] LABS: Glucose - Point of Care 77 mg/dl (70-99)
[2024-07-31 20:42] LABS: Glucose - Point of Care 78 mg/dl (70-99)
[2024-07-31] MEDS: LR IV (22:04)
[2024-07-31] MEDS: CLOZARIL 450 MG TUBE (22:23)
[2024-07-31] MEDS: FLOMAX 0.8 MG TUBE (22:29)
[2024-07-31 23:10] VITALS: BP 146/76
[2024-08-01 00:17] LABS: Glucose - Point of Care 81 mg/dl (70-99)
[2024-08-01] MEDS: HEPARIN 5000 UNITS SC ×4 (00:51→23:57)
[2024-08-01] MEDS: LR 1000 IV ×3 (04:05→21:43)
[2024-08-01 06:41] LABS: Glucose - Point of Care 90 mg/dl (70-99)
[2024-08-01 07:20] VITALS: BP 141/71
[2024-08-01 07:29] LABS: % Basophils 0.4 % (0-2); % Eosinophils 0.1 % (0-6); % Immature Granulocytes 1.2 % (0-0.5); % Monocytes 12.4 % (1.7-9.3); % Neutrophils 52.9 % (42.2-75.2); Absolute Immature Granulocytes 0.1 10^3/uL (0-0.05); Absolute Monocytes 1.1 10^3/uL (0.1-0.6); Absolute Neutrophils 4.9 10^3/uL (1.4-6.5); Hemoglobin 13.1 g/dL (13.0-18.0); Mean Corp Hgb Conc. 34.5 g/dL (33.0-37.0); Mean Corpuscular Hgb 30.8 pg (27.0-31.0); Mean Corpuscular Volume 89.2 fL (80.0-94.0); Mean Platelet Volume 9.4 fL (7.4-10.4); Nucleated Red Blood Cells % 0 % (-); Platelet Count 171 10^3/uL (130-400); Red Blood Cell Count 4.26 10^6/uL (4.70-6.10); Red Cell Dist. Width 14.6 % (11.5-14.5); White Blood Cell Count 9.2 10^3/uL (4.8-10.8)
--- NOTE | 2024-08-01 07:33 | W.PN.GS2 ---
Today's Communication / Plan
-
--NG tube clamp for today
--Repeat abdominal X-ray
Assessment / Plan
-
54 y/o male presents with partial SBO
AFVSS
Passing gas, no BM
WBC normalized, BMP pending
Slow clinical improvement. Unable to obtain UGI yesterday due to residual contrast within the colon. Plan to clamp NGT for today to assess tolerance and allow for increased mobility. Plan for repeat abdominal x-ray this afternoon to assess
contrast progression as well as any potential small bowel dilation during the course of his clamping. No plans to remove NGT today; tentative plan for removal tomorrow if he does well.
Plan:
--NG tube clamp for today
--NPO, IVF
--Repeat abdominal X-ray
--Pain control: Tylenol, Toradol
--OOB/ambulate
--Minimize narcotics, correct lytes
Subjective Data
-
Date of Service: August 01, 2024
Denies any worsening abdominal pain, feels improved. No flatus or BM. No nausea or vomiting. Reports some bilateral calf soreness. Clinical picture overall difficult to determine based on underlying cognitive status
Objective Data
-
Intake and Output
07/31/24 08/01/24 08/02/24
06:59 06:59 06:59
Intake Total 270 / 270 194 / 1940
Output Total 1675 / 1675 4160 / 4160
Balance -1405 / -1405 -2220 / -2220
Intake:
Oral fluids 0 / 0
IV fluids (Total) 1650 / 1650
IV piggybacks 60 / 60 110 / 110
Amount instilled into GI Tube ( 210 / 210 180 / 180
Total)
[place] Sump 210 / 210 180 / 180
Output:
Gastrointestinal tube output ( 525 / 525 910 / 910
Total)
[place] Sump 525 / 525 910 / 910
Urine, Voided 1150 / 1150 3250 / 3250
Vital Signs
Temp Pulse Resp BP Pulse Ox
97.9 F 77 17 146/76 96
07/31/24 23:10 07/31/24 23:10 07/31/24 23:10 07/31/24 23:10 07/31/24 23:10
Lab Results
08/01/24 06:30
Calcium 9.3 mg/dl (8.4-10.2) 07/31/24 08:18
Magnesium 1.9 mg/dl (1.6-2.3) 07/30/24 05:09
Total Bilirubin 0.5 mg/dl (0.2-1.3) 07/29/24 16:01
AST 40 U/L (17-59) 07/29/24 16:01
ALT 82 U/L (0-50) H 07/29/24 16:01
Alkaline Phosphatase 55 U/L (38-126) 07/29/24 16:01
Total Protein 7.6 g/dl (6.3-8.2) 07/29/24 16:01
Albumin 4.9 g/dl (3.5-5.0) 07/29/24 16:01
Physical Exam
-
Gen: NAD
HEENT: Non-bilious effluent
Abd: soft, NT/ND, obese, non-peritoneal
Patient has a quach catheter: No
Patient has a central line: No
[2024-08-01 08:07] LABS: Blood Urea Nitrogen 17 mg/dl (9-20); Calcium 9.1 mg/dl (8.4-10.2); Carbon Dioxide 27 mmol/L (22-30); Chloride 109 mmol/L (98-107); Estimated Creatinine Clearance > 125 ml/min; Glucose 80 mg/dl (70-99); Potassium 3.7 mmol/L (3.5-5.1); Sodium 143 mmol/L (135-145); eGFR > 60.00
[2024-08-01] MEDS: NSS (PRESERVATIVE FREE) 10 ML IV (09:26)
[2024-08-01] MEDS: PROTONIX IV 40 MG IV (09:26)
[2024-08-01] MEDS: NICODERM TRANSDERMAL 21 MG TRANSDERM (09:27)
[2024-08-01] MEDS: DEPACON 60 MG IV ×2 (09:29→21:43)
--- NOTE | 2024-08-01 11:02 | PN.CDI ---
CDI
- -
CDI:
Physician Documentation Request
Admit Date: 07/29/24 21:16
Dear Doctor Rajwinder,
Please review the following and provide your response in the progress notes.
Clinical Indicators:
The diagnosis of Partial SMALL BOWEL OBSTRUCTION was included in the signed Abdominal Xray 07/30.
Additional clinical indicators in the chart include:
Pt admitted with SBO
Progress note 07/31,' ... possible SBO raised by CT read: SMALL BOWEL OBSTRUCTION with a transition point in the right side of the midabdomen between distended proximal small bowel loops and collapsed distal ileal small bowel loops. An adhesive band
is the likely etiology of the obstruction. '
Please provide the suspected extent of the small bowl obstruction:
Partial
Complete
Other ( please specify)
Use of terms such as suspected, likely, concern for, or probable are acceptable for a diagnosis that is being evaluated, monitored or treated as if it exists and can be coded in the inpatient setting, when documented at the time of discharge.
Thank you,
Kathy Parisi RN
CDI Specialist
[place] [facility]
Please use your independent medical judgment in providing your response.
[2024-08-01 12:02] LABS: Glucose - Point of Care 78 mg/dl (70-99)
--- NOTE | 2024-08-01 12:08 | CM ---
CM reviewed medical records. Plan for discharge to home when medically ready. CM will continue to follow.
PLAN: home
--- NOTE | 2024-08-01 12:57 | W.PN.UPDATE ---
Update Note
Progress Note Update
Patient seen at bedside, chart reviewed, discussed with staff. Mr. Fatima reports doing well. Admits to some pain in abdomen but tolerable. No able to eat or drink yet. He tells me his mood is good today 'trying to stay positive and debo on the
bright side'. Denies any SI/SB, AH/VH. Sleep is reported as okay. We discussed the change to his Clozaril and he has no questions or concerns. He does plan to see Cristobal, his OP psych prescriber from the ACT team.
Impression/Recommendations: Schizophrenia - Depakote level noted to be low at 40.4 but appears stable at this dose and therefore would not adjust at this time. Continue Clozaril at decreased dose of 450mg. Psych will follow.
--- NOTE | 2024-08-01 14:09 | W.PN.HOSP.TC ---
Today's Communication/Plan
-
NG tube clamping
Increase activity.
Continue Clozaril and Depakote.
Assessment / Plan
Assessment / Plan
Assessment:
distended proximal bowel loops and stomach
- possible SBO raised by CT read: SMALL BOWEL OBSTRUCTION with a transition point in the right side of the midabdomen between distended proximal small bowel loops and collapsed distal ileal small bowel loops. An adhesive band is the likely etiology
of the obstruction. Severe distention of jejunal small bowel loops and the stomach.
- no prior history to suggest adhesional disease (no surgery prior)
Reports improvement of nausea, vomiting while NG tube in place.
Improved abdominal distention and pain.
Follow-up imaging with x-ray with nonobstructive gas pattern.
Follow-up x-ray on 08/01 with nonobstructive bowel gas pattern
NG tube to clamping
Continue IV fluids
Increase activity
Schizophrenia - Stable
- continue clozapine 600mg hs via tube with appropriate clamping
- valproic acid as IV q 12 for divalproex 1g po q 12
DM II
- holding glipizide and statin
- sliding scale insulin q 6
- A1c:
HTN
- holding lisinopril 5 for now, monitor bp
DVT PPX: SC heparin
Code: Full
Anticipated Discharge: 24 - 48 hours
Subjective/Interval History
-
Date of Service: August 01, 2024
Objective Data
-
Labs:
Laboratory Results
08/01/24
06:30
WBC 9.2
Hgb 13.1
Hct 38.0 L
Plt Count 171
Sodium 143
Potassium 3.7
Chloride 109 H
Carbon Dioxide 27
BUN 17
Creatinine 0.8
Glucose 80
Calcium 9.1
Vital Signs:
Vital Signs
Temp Pulse Resp BP Pulse Ox
97.5 F 59 18 141/71 96
08/01/24 07:20 08/01/24 07:20 08/01/24 07:20 08/01/24 07:20 08/01/24 09:22
I&O
07/31/24 08/01/24 08/02/24
06:59 06:59 06:59
Intake Total 270 / 270 1940 / 1940 60 / 60
Output Total 1675 / 1675 4160 / 4160 200 / 200
Balance -1405 / -1405 -2220 / -2220 -140 / -140
Physical Exam
-
General: Well Developed and No Apparent Distress
HEENT: Normocephalic, Atraumatic and Moist Mucous Membranes
Respiratory: Clear to Auscultation
Cardiac: Regular Rhythm and S1/S2; Negative Murmur, Rub or Gallop
GI: Soft, Nontender, Nondistended, Normal Bowel Sounds and Other (NG tube in place); Negative Organomegaly
Rectal: Deferred by Provider
Musculoskeletal: No Clubbing, No Cyanosis and No Edema
Skin: Negative Rash
Neuro: Nonfocal/Grossly Intact
[2024-08-01 15:55] VITALS: BP 134/73
[2024-08-01 18:06] LABS: Glucose - Point of Care 73 mg/dl (70-99)
[2024-08-01] MEDS: FLOMAX 0.8 MG TUBE (21:43)
[2024-08-01] MEDS: CLOZARIL 450 MG TUBE (21:43)
[2024-08-01] MEDS: TORADOL 10 MG IV (22:14)
[2024-08-01 23:10] VITALS: BP 138/65
[2024-08-01 23:57] LABS: Glucose - Point of Care 73 mg/dl (70-99)
[2024-08-02 06:15] LABS: Glucose - Point of Care 72 mg/dl (70-99)
[2024-08-02 07:15] VITALS: BP 155/80
[2024-08-02 07:16] LABS: Hematocrit 38.1 % (39.0-52.0); Mean Corp Hgb Conc. 34.1 g/dL (33.0-37.0); Mean Corpuscular Volume 90.9 fL (80.0-94.0); Mean Platelet Volume 9.3 fL (7.4-10.4); Platelet Count 177 10^3/uL (130-400); Red Blood Cell Count 4.19 10^6/uL (4.70-6.10); Red Cell Dist. Width 14.3 % (11.5-14.5); White Blood Cell Count 9.1 10^3/uL (4.8-10.8)
[2024-08-02 07:44] LABS: Blood Urea Nitrogen 19 mg/dl (9-20); Calcium 9.1 mg/dl (8.4-10.2); Carbon Dioxide 27 mmol/L (22-30); Chloride 107 mmol/L (98-107); Estimated Creatinine Clearance > 125 ml/min; Glucose 69 mg/dl (70-99); Potassium 4.1 mmol/L (3.5-5.1); Sodium 145 mmol/L (135-145); eGFR > 60.00
[2024-08-02] MEDS: NSS (PRESERVATIVE FREE) 10 ML IV (09:37)
[2024-08-02] MEDS: NICODERM TRANSDERMAL 21 MG TRANSDERM (09:38)
[2024-08-02] MEDS: PROTONIX IV 40 MG IV (09:38)
[2024-08-02] MEDS: HEPARIN 5000 UNITS SC ×2 (09:39→15:51)
[2024-08-02] MEDS: DEPACON 60 MG IV ×2 (09:47→22:35)
--- NOTE | 2024-08-02 10:25 | CM ---
Cm reviewed medical records. Patient remains acutely ill. CM will continue to follow for needs.
PLAN: home, ACT to follow from [facility].
--- NOTE | 2024-08-02 10:27 | W.PN.GS2 ---
Addendum entered and electronically signed by Regan Johnson MD 08/02/24 11:23:
I saw and examined the patient.
The resident's note was reviewed and I agree with the note.
Comment: Improving, NG clamped >24 hrs without issues, passed BM this am and flatus, denies n/v. Ab exam soft, nt, nd. DC NGT, start CLD
Original Note:
Today's Communication / Plan
-
Removed NG tube
Clear liquid diet - monitor
Assessment / Plan
-
54 y/o male presents with partial SBO
AFVSS
Passing gas, BM this am
Labs stable
Ab x-ray yesterday contrast located in colon, non-obstructive gas pattern, no disproportionally dilated loops of small bowel or air-fluid levels. No N/V or bloating with NG clamped and had a large BM this am. Doing much better so removed NG tube and
will advance diet.
Plan:
--NG tube removed
--Clear liquid diet - monitor how he tolerates it
--Pain control: Tylenol, Toradol
--OOB/ambulate
--Minimize narcotics, correct lytes
Subjective Data
-
Date of Service: August 02, 2024
Feeling well. No N/V or significant bloating since NG clamped. Had a large BM this am.
Objective Data
-
Intake and Output
08/01/24 08/02/24 08/03/24
06:59 06:59 06:59
Intake Total 194 / 1940 3660 / 3660 60 / 60
Output Total 4160 / 4160 1400 / 1400
Balance -2220 / -2220 2260 / 2260 60 / 60
Intake:
Oral fluids 0 / 0
IV fluids (Total) 1650 / 1650 3600 / 3600
IV piggybacks 110 / 110 60 / 60 60 / 60
Amount instilled into GI Tube ( 180 / 180
Total)
[place] Sump 180 / 180
Output:
Gastrointestinal tube output ( 910 / 910
Total)
[place] Sump 910 / 910
Urine, Voided 3250 / 3250 1400 / 1400
Vital Signs
Temp Pulse Resp BP Pulse Ox
97.7 F 52 16 155/80 98
08/02/24 07:15 08/02/24 07:15 08/02/24 07:15 08/02/24 07:15 08/02/24 07:15
Lab Results
08/02/24 05:38
08/02/24 05:38
Calcium 9.1 mg/dl (8.4-10.2) 08/02/24 05:38
Magnesium 1.9 mg/dl (1.6-2.3) 07/30/24 05:09
Total Bilirubin 0.5 mg/dl (0.2-1.3) 07/29/24 16:01
AST 40 U/L (17-59) 07/29/24 16:01
ALT 82 U/L (0-50) H 07/29/24 16:01
Alkaline Phosphatase 55 U/L (38-126) 07/29/24 16:01
Total Protein 7.6 g/dl (6.3-8.2) 07/29/24 16:01
Albumin 4.9 g/dl (3.5-5.0) 07/29/24 16:01
Physical Exam
-
NAD
Soft, non-tender abdomen, no guarding or rigidity
--- NOTE | 2024-08-02 11:25 | W.PN.UPDATE ---
Addendum entered and electronically signed by Oseas Moreno MD 08/02/24 11:32:
had a large bowel movment this am
Original Note:
Update Note
Progress Note Update
patient seen chart reviewed. discussed with nursing. the patient looks much better to me than he did last week. perhaps his spirits are buoyed but the removal of the ng tube and the prospect of eating today albeit merely clear liquids. he does say
he is feeling better. he is much more awake alert and focused in discussion. the clozaril level remains pending. would like to further decrease clozaril but will give it some time. clozaril is likely the reason for this admit. it causes major
constipation in some patients. will ask gi to come up with a bowel plan for him as miralax alone did not work. the conversation moved to his dm. he is not very knowledgeable about how to eat eg no idea re concept of carb counting, the glycemic
index etc. will ask dietary to see him. he would like to be more active and engaged in his life. 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 he is not actively hallucinating currently will follow.
[2024-08-02 11:28] LABS: Glucose - Point of Care 100 mg/dl (70-99)
[2024-08-02] MEDS: LR 1000 IV (12:06)
[2024-08-02] MEDS: LR IV (12:06)
--- NOTE | 2024-08-02 14:32 | W.PN.HOSP.TC ---
Today's Communication/Plan
-
NG tube removed
Clear liquid diet
Discontinue IV PPI
Stop IV fluids
Continue current psychiatric regimen.
Plan to transition to oral Depakote once tolerate oral intake
Assessment / Plan
Assessment / Plan
Assessment:
distended proximal bowel loops and stomach
- possible SBO raised by CT read: SMALL BOWEL OBSTRUCTION with a transition point in the right side of the midabdomen between distended proximal small bowel loops and collapsed distal ileal small bowel loops. An adhesive band is the likely etiology
of the obstruction. Severe distention of jejunal small bowel loops and the stomach.
- no prior history to suggest adhesional disease (no surgery prior)
Reports improvement of nausea, vomiting while NG tube in place.
Improved abdominal distention and pain.
Follow-up imaging with x-ray with nonobstructive gas pattern.
Follow-up x-ray on 08/01 with nonobstructive bowel gas pattern
NG tube removed on 08/02
Clear liquid diet
Increase activity
Schizophrenia - Stable
- continue clozapine 600mg hs via tube with appropriate clamping
- valproic acid as IV q 12 for divalproex 1g po q 12
DM II
- holding glipizide and statin
- sliding scale insulin q 6
- A1c:
HTN
- holding lisinopril 5 for now, monitor bp
DVT PPX: SC heparin
Code: Full
Anticipated Discharge: 24 - 48 hours
Subjective/Interval History
-
Date of Service: August 02, 2024
Objective Data
-
Labs:
Laboratory Results
08/02/24
05:38
WBC 9.1
Hgb 13.0
Hct 38.1 L
Plt Count 177
Sodium 145
Potassium 4.1
Chloride 107
Carbon Dioxide 27
BUN 19
Creatinine 0.8
Glucose 69 L
Calcium 9.1
Vital Signs:
Vital Signs
Temp Pulse Resp BP Pulse Ox
97.7 F 52 16 155/80 98
08/02/24 07:15 08/02/24 07:15 08/02/24 07:15 08/02/24 07:15 08/02/24 07:15
I&O
08/01/24 08/02/24 08/03/24
06:59 06:59 06:59
Intake Total 1940 / 1940 3660 / 3660 60 / 60
Output Total 4160 / 4160 1400 / 1400
Balance -2220 / -2220 2260 / 2260 60 / 60
Physical Exam
-
General: Well Developed and No Apparent Distress
HEENT: Normocephalic, Atraumatic and Moist Mucous Membranes
Respiratory: Clear to Auscultation
Cardiac: Regular Rhythm and S1/S2; Negative Murmur, Rub or Gallop
GI: Soft, Nontender, Nondistended and Normal Bowel Sounds; Negative Organomegaly
Rectal: Deferred by Provider
Musculoskeletal: No Clubbing, No Cyanosis and No Edema
Skin: Negative Rash
Neuro: Nonfocal/Grossly Intact
--- NOTE | 2024-08-02 14:38 | CON.GI ---
Addendum entered and electronically signed by Chapo Youngblood MD 08/02/24 18:40:
I saw and examined the patient.
The [employer] or PA's note was reviewed and I agree with the note.
Comment:
This patient is a 54-year-old man with schizophrenia who was on Clozaril. We were requested to see this patient by the psychiatrist as he does get constipated on Clozaril. He does state that he takes MiraLAX once a day. He was admitted what was
called us partial small bowel obstruction but on questioning sounded more like an ileus secondary to possible mild gastroenteritis. He states he is markedly better and did tolerate clears tonight. He normally does not get more constipated while on
MiraLAX.
abd: Soft, nontender, bowel sounds are positive.
impression
constipation
Resolving ileus
Plan:
1. Outpatient regimen should consist of MiraLAX once a day. If needed he can increase to twice a day. I did discuss with him adding 5 mg of bisacodyl half hour before MiraLAX if this does not work and this can be done twice a day. If this does
not work he can take an [id number] enema or suppository.
2. This can also be done as an inpatient if needed. If severe as an inpatient in the future we can utilize milk of magnesia enema.
At this point recent imaging does not show impaction or constipation and he is clinically better.
We will sign off call with questions.
Original Note:
Consultation
-
Date/Time Consultation Requested: 08/02/24 1132
Date/Time Consultation Performed: 08/02/24 1420
Requesting Provider: Dr. Moreno
Performing Provider: Dr. Youngblood / Martita Lee PA-C
Reason for Consultation: constipation
Medical History
Chief Complaint / HPI
Chief Complaint: abdominal pain / constipation
History of Present Illness:
This is a 54 year old male with a past medical history of schizophrenia, hyperlipidemia, kidney stones, obesity and colon polyps who presented to the ER with worsening abdominal pain, nausea, vomiting and constipation and found to have small bowel
obstruction on CT with findings of significant gastric and proximal small bowel distension. NG tube was placed and he started to feel better. Surgery was consulted and did not advise surgical intervention as he improved. Serial abdominal x-rays
showed improvement as well, and NG tube was removed today. Patient reports he is passing gas and he had a bowel movement earlier today. Now denies any abdominal pain, nausea, vomiting. He has no prior history of SBO. He complained of worsening
constipation in the week leading up to his current hospital admission. Patient was taking 1 capful of Miralax daily, which had been initially helpful. He admits to straining to defecate; no rectal pain or rectal bleeding. He denies any recent
changes in medications or diet. He has been on Clozaril 600mg once daily for the past 3 years for schizophrenia. He is also on Depakote 1000mg BID. Per Psychiatry note, clozaril has known common side effect of constipation, and his dose has been
reduced to 450mg. Outpatient he follows closely with his Psychiatrist.
He had a recent colonoscopy with Dr. 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 There is no family history of colon cancer or any other
GI malignancies. Will be due for repeat colonoscopy 2026.
Past Medical History
Past Medical History: Other (SBO, schizophrenia, hyperlipidemia, kidney stones, obesity and colon polyps)
Past Surgical History: Other (ureteroscopy- right 2011, tongue lesion resection, adenoidectomy, tonsillectomy, uvelectomy for sleep apnea, myringotomy tubes)
Social History
Tobacco: Smoker
Alcohol: None
Drug: None
Personal: Single
Employment: Not Employed
Family History
Family History: Reviewed & Not Pertinent and Other (no family history of colorectal cancer or any GI malignancies)
Allergies / Home Medications
Allergy/AdvReac Type Severity Reaction Status Date / Time
haloperidol [From Haldol] Allergy jaw locks Verified 07/29/24 15:56
haloperidol lactate Allergy jaw locks Verified 07/29/24 15:56
[From Haldol]
Iodinated Contrast Media Allergy CONTRAST-HI Verified 07/29/24 15:56
[IV Dye, Iodine Containing VES
Contrast ]
lithium [Mercedes] Allergy 'feels Verified 07/29/24 15:56
sick'
can't sleep
olanzapine [From Zyprexa] Allergy hyperactivi Verified 07/29/24 15:56
ty
Penicillins Allergy 'doesn't Verified 07/29/24 15:56
feel well'
quetiapine fumarate Allergy 'feels Verified 07/29/24 15:56
[From Seroquel] sick'
can't sleep
risperidone [From Risperdal] Allergy 'doesn't Verified 07/29/24 15:56
feel
well',
can't sleep
�Medication �Instructions �Recorded
clozapine 100 mg tablet 600 mg PO HS 09/04/11
docusate sodium 100 mg capsule 100 mg PO BID 10/29/11
M.V.I. Adult 1 tab PO DAILY 07/29/24
Miralax 17 packet PO DAILY 07/29/24
clozapine 600 mg PO HS 07/29/24
divalproex 500 mg tablet,extended 1,000 mg PO BID 07/29/24
release 24 hr
glipizide 5 mg tablet 5 mg PO BID 07/29/24
lisinopril 5 mg PO DAILY 07/29/24
methocarbamol 500 mg PO BID 07/29/24
rosuvastatin 10 mg PO DAILY 07/29/24
tamsulosin 0.8 mg PO DAILY@1800 07/29/24
Review of Systems
-
History Source: Patient
All other systems: A 12 pt ROS was Negative except as stated above in HPI
Vital Signs
Temp Pulse Resp BP Pulse Ox
97.7 F 52 16 155/80 98
08/02/24 07:15 08/02/24 07:15 08/02/24 07:15 08/02/24 07:15 08/02/24 07:15
Physical Exam
Exam
General: Well Developed, Well Nourished and No Apparent Distress
Respiratory: Clear
Cardiac: Regular Rhythm
GI: Soft, Non Tender and Normal Bowel Sounds
Skin: Warm and Dry
Neuro: AO x 3
Psych: Calm
Results
WBC 9.1 10^3/uL (4.8-10.8) 08/02/24 05:38
Hgb 13.0 g/dL (13.0-18.0) 08/02/24 05:38
Hct 38.1 % (39.0-52.0) L 08/02/24 05:38
MCV 90.9 fL (80.0-94.0) 08/02/24 05:38
Plt Count 177 10^3/uL (130-400) 08/02/24 05:38
Absolute Neuts (auto) 4.9 10^3/uL (1.4-6.5) 08/01/24 06:30
Sodium 145 mmol/L (135-145) 08/02/24 05:38
Potassium 4.1 mmol/L (3.5-5.1) 08/02/24 05:38
Chloride 107 mmol/L (98-107) 08/02/24 05:38
Carbon Dioxide 27 mmol/L (22-30) 08/02/24 05:38
BUN 19 mg/dl (9-20) 08/02/24 05:38
Creatinine 0.8 mg/dL (0.7-1.3) 08/02/24 05:38
Calcium 9.1 mg/dl (8.4-10.2) 08/02/24 05:38
Total Bilirubin 0.5 mg/dl (0.2-1.3) 07/29/24 16:01
AST 40 U/L (17-59) 07/29/24 16:01
ALT 82 U/L (0-50) H 07/29/24 16:01
Alkaline Phosphatase 55 U/L (38-126) 07/29/24 16:01
Lipase 33 U/L (23-300) 07/29/24 16:01
Diagnostic Image Results:
Abdominal X-ray 08/01/24:
Contrast material again located within the colon. Bowel gas pattern currently does not appear obstructive. No disproportionally dilated loops of small bowel or air-fluid levels. Enteric tube with the tip in the stomach. No appreciable
intraperitoneal free air. No abnormal soft tissue calcifications.
Abdominal X-ray 07/31/24:
Nonspecific bowel gas pattern without signs of obstruction.
Abdominal X-ray 07/30/24:
1. PARTIAL SMALL BOWEL OBSTRUCTION with interval passage of oral contrast material through the small bowel and into the colon.
2. Persistent severe distention of proximal small bowel loops in the left upper quadrant of the abdomen.
3. Nasogastric tube in place.
CT Abdomen/pelvis 07/29/24:
1. SMALL BOWEL OBSTRUCTION with a transition point in the right side of the midabdomen between distended proximal small bowel loops and collapsed distal ileal small bowel loops. An adhesive band is the likely etiology of the obstruction. Severe
distention of jejunal small bowel loops and the stomach.
2. Minimal peritoneal fluid in the pelvis.
3. Mild hepatomegaly.
Prior GI Procedures:
EGD:
Colonoscopy:
06/2023 Colonoscopy (Dr. Sanchez):
- One 2 mm polyp in the cecum, removed with a jumbo cold forceps. Resected and retrieved. (Path: tubular adenoma/polypoid colonic mucosa with a prominent lymphoid aggregate)
- One 4 mm polyp in the cecum, removed with a cold snare. Resected and retrieved. (Path: tubular adenoma/polypoid colonic mucosa with a prominent lymphoid aggregate)
- One 6 mm polyp in the ascending colon, removed with a cold snare. Resected and retrieved. (Path: tubular adenoma)
- One 3 mm polyp in the descending colon, removed with a jumbo cold forceps. Resected and retrieved. (Path: tubular adenoma)
- One 10 mm polyp in the sigmoid colon, removed with a cold snare. Resected and retrieved. (*Path: tubulovillous adenoma)
- Internal hemorrhoids.
- Tortuous colon.
Assessment / Plan
-
54 year old male with schizophrenia (on Clozaril and Depakote), hyperlipidemia, kidney stones, obesity and colon polyps who is currently admitted for SBO/partial SBO, who has been clinically improving with removal of NG tube today. He had a bowel
movement earlier today and is passing flatus. Psychiatry has reduced his dose of Clozaril (from 600mg to 450mg) as this has a known side effect of constipation, which can be severe. Patient was previously taking Miralax 1 capful daily, which was
helping but he did note increasing constipation in the week prior to coming to the hospital. He is up to date with colonoscopy.
IMPRESSION/ PLAN:
SBO/Partial SBO - improving
- with serial abdominal x-rays showing improvement with no disproportionally dilated loops of small bowel or air-fluid levels and bowel gas pattern that no longer appears obstructive
- NGT removed today
- clear liquid diet
- continue to monitor symptoms
- Surgery following as well
Constipation, likely secondary to antipsychotic medications (Clozaril)
- recommend a consistent bowel regimen
- he had previously taken Miralax 1 capful daily, which he states was helping up until last week. We discussed at length that he can titrate his dose of Miralax based on his bowel movements, increasing to twice daily, even three times a day, as
needed. Could also try bisacodyl (Dulcolax) prior to the Miralax and enema if the constipation persists/worsens.
- he remains on Clozaril, dose reduced
- currently passing gas and had a bowel movement today; will hold off on Miralax for now
Colon Polyps (TA/TVA)
- up to date with colonoscopy; will be due 06/2026 for repeat surveillance colonoscopy
Other medical problems managed as per hospitalist team and Psychiatry.
-
-
Thank you for consultation and allowing me to participate in the patient's care. Please call the [facility] physician during the after hours with any questions or concerns.
[2024-08-02 15:05] VITALS: BP 155/84
[2024-08-02 16:45] LABS: Glucose - Point of Care 71 mg/dl (70-99)
[2024-08-02] MEDS: FLOMAX 0.8 MG TUBE (22:33)
[2024-08-02] MEDS: CLOZARIL 450 MG TUBE (22:33)
[2024-08-02 23:00] VITALS: BP 160/81
[2024-08-02 23:11] LABS: Glucose - Point of Care 69 mg/dl (70-99)
[2024-08-03] MEDS: HEPARIN 5000 UNITS SC ×3 (00:01→16:33)
[2024-08-03 00:14] LABS: Glucose - Point of Care 105 mg/dl (70-99)
[2024-08-03 07:07] VITALS: BP 134/74
[2024-08-03 07:20] LABS: Glucose - Point of Care 84 mg/dl (70-99)
--- NOTE | 2024-08-03 07:20 | W.PN.GS2 ---
Addendum entered and electronically signed by Geovanni Winchester MD 08/03/24 12:14:
Abdominal x-ray findings reviewed. Slight dilation of small bowel likely indicative of some omental persistent partial SBO. Contrast remains within the colon over the past 72 hours also indicative of a likely component of constipation. Clinically
patient has improved with passage of flatus and large BMs. Diet has been advanced to full's. Plan for MiraLAX to address any underlying constipation and help clearance of colon.
Addendum entered and electronically signed by Geovanni Winchester MD 08/03/24 08:53:
Patient seen and examined.
No complaints. Denies worsening abdominal pain. No nausea or vomiting currently. Does report some mild nausea yesterday evening. Large bowel movement overnight. Continues to pass flatus. Minimal ambulation. Previously noted calf discomfort
bilaterally has improved.
Gen: NAD
Abd: obese, soft, NT, ND, non-peritoneal
Labs reviewed
Patient is a 54 yo M p/w partial SBO
AFVSS
Passing gas and having BM
BMP pending
Overall clinical improvement. Mild nausea yesterday afternoon either related to slow transit with large volume PO intake versus related to having a large BM (likely contrast from prior CT). Advance to clears. Abdominal X-ray given the limited
ability to obtain accurate clinical information due to cognitive delay.
Plan:
--Trial of fulls
--Ab xray
--Pain control: Tylenol, Toradol
--OOB/ambulate
--Minimize narcotics, correct lytes with
Original Note:
Today's Communication / Plan
-
Full liquid diet
Ab x-ray
Assessment / Plan
-
54 y/o male presents with partial SBO
AFVSS
Passing gas and having BM
BMP pending
Nausea yesterday on clear liquid diet, this morning no nausea. Diarrhea last night. Unable to get to the bathroom with diarrhea all over bedding and in bathroom. Will do another ab x-ray to eval.
Plan:
--Advance to full liquids - monitor how he does
--Ab xray
--Pain control: Tylenol, Toradol
--OOB/ambulate
--Minimize narcotics, correct lytes
Subjective Data
-
Date of Service: August 03, 2024
Large bowel movement overnight, diarrhea. Some nausea on clear liquids yesterday no vomiting. No significant ab pain.
Objective Data
-
Intake and Output
08/02/24 08/03/24 08/04/24
06:59 06:59 06:59
Intake Total 3660 / 3660 2331 / 2331
Output Total 1400 / 1400 1900 / 1900
Balance 2260 / 2260 431 / 431
Intake:
Oral fluids 2271 / 2271
IV fluids (Total) 3600 / 3600
IV piggybacks 60 / 60 60 / 60
Output:
Urine, Voided 1400 / 1400 1900 / 1900
Other:
Number of approximated MODERATE 1
amounts of urine
Vital Signs
Temp Pulse Resp BP Pulse Ox
97.5 F 76 18 160/81 98
08/02/24 23:00 08/02/24 23:00 08/02/24 23:00 08/02/24 23:00 08/02/24 23:00
Lab Results
08/02/24 05:38
Calcium 9.1 mg/dl (8.4-10.2) 08/02/24 05:38
Magnesium 1.9 mg/dl (1.6-2.3) 07/30/24 05:09
Total Bilirubin 0.5 mg/dl (0.2-1.3) 07/29/24 16:01
AST 40 U/L (17-59) 07/29/24 16:01
ALT 82 U/L (0-50) H 07/29/24 16:01
Alkaline Phosphatase 55 U/L (38-126) 07/29/24 16:01
Total Protein 7.6 g/dl (6.3-8.2) 07/29/24 16:
Albumin 4.9 g/dl (3.5-5.0) 07/29/24 16:01
Physical Exam
-
NAD
Ab soft, non-tender, non-distended, non-tympanic
[2024-08-03 07:43] LABS: Blood Urea Nitrogen 14 mg/dl (9-20); Calcium 8.9 mg/dl (8.4-10.2); Carbon Dioxide 27 mmol/L (22-30); Chloride 104 mmol/L (98-107); Estimated Creatinine Clearance > 125 ml/min; Glucose 77 mg/dl (70-99); Potassium 3.7 mmol/L (3.5-5.1); Sodium 144 mmol/L (135-145); eGFR > 60.00
[2024-08-03] MEDS: NICODERM TRANSDERMAL 21 MG TRANSDERM (09:06)
[2024-08-03] MEDS: FLUSH (NSS) 2 FLUSH IV (09:41)
[2024-08-03] MEDS: DEPACON 60 MG IV (09:41)
--- NOTE | 2024-08-03 11:43 | W.PN.UPDATE ---
Update Note
Progress Note Update
patient seen chart reviewed. discussed with nursing. the patient is continuing to improve. there are no obvious issues psychiatrically with the decrease in clozaril. he met with gi yesterday. i went over their recs with him to keep his bowels
moving. he had a bowel movement last night. impressed upon him that if he is getting backed up he needs to do what gi recommended eg miralax bid+/- dulcolax thirty minutes before. we also discussed what constitutes as healthy diet vis a vis his
colon and dm. he met with dietary yesterday but he still does not seem to have a clear idea of how he should be eating. we have a nurse navigator at [facility] where he is seen for psych and she can offer dietary monitoring. i will talk to the ACT team
about this and they can followup when he is discharged (he sees ACT at [facility]) will continue to follow no changes made in psych meds.
[2024-08-03 12:34] LABS: Clozapine, Quantitative 288 ng/mL; Clozapine-N-Oxide,Quantitative <100 ng/mL; Norclozapine, Quantitative <100 ng/mL; Total Clozapine & Metabolites 288 ng/mL (<=1500)
[2024-08-03 13:08] LABS: Glucose - Point of Care 88 mg/dl (70-99)
[2024-08-03] MEDS: MIRALAX 17 GRAMS PO (13:09)
--- NOTE | 2024-08-03 14:31 | W.PN.HOSP.TC ---
Today's Communication/Plan
-
Continue Clozaril.
Transition back to oral Depakote.
Full liquid diet
Assessment / Plan
Assessment / Plan
Assessment:
distended proximal bowel loops and stomach
- possible SBO raised by CT read: SMALL BOWEL OBSTRUCTION with a transition point in the right side of the midabdomen between distended proximal small bowel loops and collapsed distal ileal small bowel loops. An adhesive band is the likely etiology
of the obstruction. Severe distention of jejunal small bowel loops and the stomach.
- no prior history to suggest adhesional disease (no surgery prior)
Reports improvement of nausea, vomiting while NG tube in place.
Improved abdominal distention and pain.
Follow-up imaging with x-ray with nonobstructive gas pattern.
Follow-up x-ray on 08/01 with nonobstructive bowel gas pattern
NG tube removed on 08/02
Full liquid diet
Increase activity
Bowel regimen as outpatient
Schizophrenia - Stable
On Depakote and Clozaril [employer].
Clozaril 'have contributed to ileus�SBO with its anticholinergic features
Clozaril dose reduced.
Psychiatry input appreciated
DM II
- holding glipizide and statin
- sliding scale insulin q 6
- A1c:
HTN
- holding lisinopril 5 for now, monitor bp
DVT PPX: SC heparin
Code: Full
Anticipated Discharge: 24 - 48 hours
Subjective/Interval History
-
Date of Service: August 03, 2024
Objective Data
-
Labs:
Laboratory Results
08/03/24
05:27
Sodium 144
Potassium 3.7
Chloride 104
Carbon Dioxide 27
BUN 14
Creatinine 0.8
Glucose 77
Calcium 8.9
Vital Signs:
Vital Signs
Temp Pulse Resp BP Pulse Ox
97.8 F 72 16 134/74 98
08/03/24 07:07 08/03/24 07:07 08/03/24 07:07 08/03/24 07:07 08/03/24 09:02
I&O
08/02/24 08/03/24 08/04/24
06:59 06:59 06:59
Intake Total 3660 / 3660 2331 / 2331 2400 / 2400
Output Total 1400 / 1400 1900 / 1900 1500 / 1500
Balance 2260 / 2260 431 / 431 900 / 900
Physical Exam
-
General: Well Developed and No Apparent Distress
HEENT: Normocephalic, Atraumatic and Moist Mucous Membranes
Respiratory: Clear to Auscultation
Cardiac: Regular Rhythm and S1/S2; Negative Murmur, Rub or Gallop
GI: Soft, Nontender, Nondistended and Normal Bowel Sounds; Negative Organomegaly
Rectal: Deferred by Provider
Musculoskeletal: No Clubbing, No Cyanosis and No Edema
Skin: Negative Rash
Neuro: Nonfocal/Grossly Intact
--- NOTE | 2024-08-03 14:59 | CM ---
CM following re: discharge planning.
Reviewed pt's chart, met with pt. Pt stated he feels much better. general surgery, psychiatry following.
Patient is a resident at [facility] residential program. Patient reports he is independent with adl's and ambulation,
D/C plan: return back to ACT program at [facility].
CM will follow with discharge plan updates as hospitalization progresses
[2024-08-03 15:02] VITALS: BP 147/87
[2024-08-03 17:34] LABS: Glucose - Point of Care 97 mg/dl (70-99)
[2024-08-03] MEDS: DEPAKOTE ER (24 HR RELEASE) 1000 MG PO (19:56)
[2024-08-03] MEDS: CLOZARIL 450 MG PO (21:44)
[2024-08-03] MEDS: FLOMAX 0.8 MG PO (21:44)
[2024-08-03 23:01] VITALS: BP 141/85
[2024-08-03 23:57] LABS: Glucose - Point of Care 80 mg/dl (70-99)
[2024-08-04] MEDS: HEPARIN 5000 UNITS SC ×4 (00:22→23:03)
[2024-08-04 07:06] VITALS: BP 147/71
--- NOTE | 2024-08-04 07:40 | W.PN.GS2 ---
Addendum entered and electronically signed by eRgan Johnson MD 08/04/24 10:39:
I saw and examined the patient.
The resident's note was reviewed and I agree with the note with following corrections/additions:
Comment: Improving. Passing flatus and BM. Nils CLD. Exam benign. Adv to LRD. Cont miralax. Advised cont miralax upon DC. OK for DC home when tolerating LRD
Original Note:
Today's Communication / Plan
-
Advance to full residue
Assessment / Plan
-
54 y/o male presents with partial SBO
AFVSS
Passing gas and having BM
No N/V with full liquids. Slightly prominent small bowel loops on x-ray yesterday may reflect persistent partial SBO. Contrast in colon after 72 hrs may represent some constipation. Placing pt on bowel regimen of miralax daily to help with
constipation.
Plan:
--Advance to low residue and see how he does
--Ab xray
--Pain control: Tylenol, Toradol
--OOB/ambulate
--Minimize narcotics, correct lytes
Subjective Data
-
Date of Service: August 04, 2024
No N/V on full liquid diet. No BM yet today. Overall feeling better than before.
Objective Data
-
Intake and Output
08/03/24 08/04/24 08/05/24
06:59 06:59 06:59
Intake Total 2331 / 2331 3360 / 3360
Output Total 1900 / 1900 2200 / 2200
Balance 431 / 431 1160 / 1160
Intake:
Oral fluids 2271 / 2271 3300 / 3300
IV piggybacks 60 / 60 60 / 60
Output:
Urine, Voided 1900 / 1900 220 / 2200
Other:
Number of approximated MODERATE 1 1
amounts of urine
Vital Signs
Temp Pulse Resp BP Pulse Ox
98.3 F 77 16 141/85 98
08/03/24 23:01 08/03/24 23:01 08/03/24 23:01 08/03/24 23:01 08/03/24 23:01
Lab Results
08/02/24 05:38
08/03/24 05:27
Calcium 8.9 mg/dl (8.4-10.2) 08/03/24 05:27
Magnesium 1.9 mg/dl (1.6-2.3) 07/30/24 05:09
Total Bilirubin 0.5 mg/dl (0.2-1.3) 07/29/24 16:01
AST 40 U/L (17-59) 07/29/24 16:01
ALT 82 U/L (0-50) H 07/29/24 16:01
Alkaline Phosphatase 55 U/L (38-126) 07/29/24 16:01
Total Protein 7.6 g/dl (6.3-8.2) 07/29/24 16:01
Albumin 4.9 g/dl (3.5-5.0) 07/29/24 16:01
Physical Exam
-
NAD
Soft, non-distended, non-tender
[2024-08-04 07:52] LABS: Glucose - Point of Care 95 mg/dl (70-99)
[2024-08-04 08:13] VITALS: BMI 34.6
[2024-08-04] MEDS: NICODERM TRANSDERMAL 21 MG TRANSDERM (09:05)
[2024-08-04] MEDS: DEPAKOTE ER (24 HR RELEASE) 1000 MG PO ×2 (09:05→20:31)
[2024-08-04] MEDS: MIRALAX 17 GRAMS PO (09:06)
[2024-08-04 12:04] LABS: Glucose - Point of Care 88 mg/dl (70-99)
--- NOTE | 2024-08-04 13:06 | W.PN.UPDATE ---
Update Note
Progress Note Update
patient seen chart reviewed discussed with dr parks who came to patient's room while we were talking. mr guido is doing much better. he had a lot of questions about his diet which we addressed. there was some confusion as to whether he was on
full liq vs ada. dr parks was able to clear this up. we addressed his clozaril level which is 288 this is thought to be therapeutic on the low side of usual. there is no established blood level for clozaril efficacy but thought to be between 100
and 700 by this lab and closer to the middle in my experience. we discussed how SMOKING will reduce clozaril blood level and how it is extremely advisable that he NOT return to smoking as if the level falls he is at risk for psych relapse. he
should try for abstinence from cigs using all appropriate aids. nicotine patch gun lozenges . he does use vaping. he also spoke of his aspirations. he wants to put something in his life to look forward to. eg a little job some outings. advised
him to address this with his therapist and i will send an email to the act team to address these issues w him . he will likely be dc tomorrow. would also ask the act team to think about whether he might benefit from adding an antidepressant. lastly
we addressed his constipation. he needs to monitor this as ileus is dangerous as a medical condition. he should use miralax and ducolax liberally which i explained to him and the ACT program needs to be aware to monitor. if i can be of help i told
him he can find me through crisis.
--- NOTE | 2024-08-04 13:26 | W.PN.HOSP.TC ---
Today's Communication/Plan
-
Advance to full liquids and low residual diet for dinner.
Maintain decreased dose of Clozaril
Maintain MiraLAX.
Resume lisinopril and Flomax
Discharge planning
Assessment / Plan
Assessment / Plan
Assessment:
distended proximal bowel loops and stomach
- possible SBO raised by CT read: SMALL BOWEL OBSTRUCTION with a transition point in the right side of the midabdomen between distended proximal small bowel loops and collapsed distal ileal small bowel loops. An adhesive band is the likely etiology
of the obstruction. Severe distention of jejunal small bowel loops and the stomach.
- no prior history to suggest adhesional disease (no surgery prior)
Reports improvement of nausea, vomiting while NG tube in place.
Improved abdominal distention and pain.
Follow-up imaging with x-ray with nonobstructive gas pattern.
Follow-up x-ray on 08/01 with nonobstructive bowel gas pattern
NG tube removed on 08/02
Full liquid diet to low residue diet for dinner
Increase activity
Bowel regimen as outpatient
Schizophrenia - Stable
On Depakote and Clozaril KIER DRIER.
Clozaril 'have contributed to ileus�SBO with its anticholinergic features
Clozaril dose reduced.
Psychiatry input appreciated
DM II
- holding glipizide and statin
- sliding scale insulin q 6
HTN
- holding lisinopril 5 for now, monitor bp
DVT PPX: SC heparin
Code: Full
Anticipated Discharge: 24 - 48 hours
Subjective/Interval History
-
Date of Service: August 04, 2024
Objective Data
-
Vital Signs:
Vital Signs
Temp Pulse Resp BP Pulse Ox
97.8 F 80 17 147/71 97
08/04/24 07:06 08/04/24 07:06 08/04/24 07:06 08/04/24 07:06 08/04/24 07:06
I&O
08/03/24 08/04/24 08/05/24
06:59 06:59 06:59
Intake Total 2331 / 2331 3360 / 3360 1260 / 1260
Output Total 1900 / 1900 2200 / 2200
Balance 431 / 431 1160 / 1160 1260 / 1260
Physical Exam
-
General: Well Developed and No Apparent Distress
HEENT: Normocephalic, Atraumatic and Moist Mucous Membranes
Respiratory: Clear to Auscultation
Cardiac: Regular Rhythm and S1/S2; Negative Murmur, Rub or Gallop
GI: Soft, Nontender, Nondistended and Normal Bowel Sounds; Negative Organomegaly
Rectal: Deferred by Provider
Musculoskeletal: No Clubbing, No Cyanosis and No Edema
Skin: Negative Rash
Neuro: Nonfocal/Grossly Intact
--- NOTE | 2024-08-04 13:52 | CM ---
CM following re: discharge planning.
Reviewed pt's chart, met with pt. Pt stated he feels much better. General surgery, psychiatry following.
Patient is a resident at [facility], lives with a room mate. Patient reports he is independent with adl's and ambulation.
IMM reviewed, placed on chart, pt has a copy.
D/C plan: return back to [facility] residency at [facility].
CM will follow with discharge plan updates as hospitalization progresses
[2024-08-04 15:09] VITALS: BP 141/87
[2024-08-04 17:02] LABS: Glucose - Point of Care 71 mg/dl (70-99)
[2024-08-04] MEDS: FLOMAX 0.8 MG PO (17:05)
[2024-08-04 20:37] LABS: Glucose - Point of Care 106 mg/dl (70-99)
[2024-08-04 22:04] LABS: Glucose - Point of Care 75 mg/dl (70-99)
[2024-08-04] MEDS: CLOZARIL 450 MG PO (23:02)
[2024-08-04 23:25] VITALS: BP 141/93
[2024-08-05 07:40] VITALS: BP 132/87
[2024-08-05 07:46] LABS: Glucose - Point of Care 96 mg/dl (70-99)
--- NOTE | 2024-08-05 08:32 | W.PN.HOSP.TC ---
Today's Communication/Plan
-
If he tolerates breakfast with LRD, then dc home.
Assessment / Plan
Assessment / Plan
Assessment/hospital course:
54-year-old with history of asthma, schizophrenia on antipsychotic medications who presented to the emergency department with acute onset of abdominal pain and vomiting found to have a small bowel obstruction. Per CT scan the small bowel
obstruction is on the basis of adhesion. However patient denies any history of intra-abdominal surgery. He had a colonoscopy within the last year which showed polyps but otherwise no evidence of intermittent inflammatory bowel disease. Patient
denies inflammatory bowel disease symptoms. Patient denies any history of congenital disorders. In no clinical basis for additions in this patient. Radiology is mildly considered. However he has no signs of inflammatory bowel disease. He has no
signs of an acute infection. There are no masses noted on the CT scan. Given a transition point unlikely ileus and no basis for ileus with negative gallstones normal pancreas and normal lipase and lfts as well as no culprit medications. He was
admitted for treatment of SBO.
1. distended proximal bowel loops and stomach
- possible SBO raised by CT read: SMALL BOWEL OBSTRUCTION with a transition point in the right side of the midabdomen between distended proximal small bowel loops and collapsed distal ileal small bowel loops.
An adhesive band is the likely etiology of the obstruction.
Severe distention of jejunal small bowel loops and the stomach.
- no prior history to suggest adhesional disease (no surgery prior)
Reported improvement of nausea and vomiting while NG tube in place.
NG tube removed on 08/02, Then was transitioned to LRD and tolerated this.
Improved abdominal distention and pain.
Follow-up imaging with x-ray showed nonobstructive gas pattern.
He has tolerated Increase activity
The plan is to continue Bowel regimen as outpatient
2. Schizophrenia - Stable
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
However, Clozaril 'have contributed to ileus�SBO with its anticholinergic features' so disciplined bowel regimes as outpatient highly recommended.
Clozaril dose reduced.
Psychiatry input appreciated
3. DM II - stable
In hospital - holding glipizide and statin, using - sliding scale insulin q 6
Resume home meds at discharge
4. HTN - stable, but elevated as inpatient as plan was to hold lisinopril 5 for now, monitor bp
Resume lisinopril as outpatient
DVT PPX while inpatient was: SC heparin
Code while hospitalized was: Full
Anticipated Discharge: Today
Subjective/Interval History
-
Date of Service: August 05, 2024
Feels well. Tolerating LRD diet. Wants to be discharged.
Objective Data
-
Vital Signs:
Vital Signs
Temp Pulse Resp BP Pulse Ox
97.9 F 116 16 141/93 100
08/04/24 23:25 08/04/24 23:25 08/04/24 23:25 08/04/24 23:25 08/04/24 23:25
I&O
08/04/24 08/05/24 08/06/24
06:59 06:59 06:59
Intake Total 3360 / 3360 2520 / 2520
Output Total 2200 / 2200
Balance 1160 / 1160 2520 / 2520
Review of Systems
-
History Source: Patient
All other systems: Reviewed and negative
Physical Exam
-
General: Well Developed, Well Nourished, No Apparent Distress and Comfortable
Respiratory: Clear to Auscultation
Cardiac: Regular Rhythm and S1/S2
GI: Soft, Nontender and Nondistended
Musculoskeletal: No Clubbing, No Cyanosis and No Edema
Skin: Warm and Dry
Neuro: Awake, Alert and Oriented
Psych: Calm
Data Reviewed
-
Labs: Labs Reviewed by me
[2024-08-05] MEDS: DEPAKOTE ER (24 HR RELEASE) 1000 MG PO (08:38)
[2024-08-05] MEDS: HEPARIN 5000 UNITS SC (08:38)
[2024-08-05] MEDS: MIRALAX 17 GRAMS PO (08:38)
[2024-08-05] MEDS: NICODERM TRANSDERMAL 21 MG TRANSDERM (08:39)
[2024-08-05] MEDS: ZESTRIL 5 MG PO (08:39)
--- NOTE | 2024-08-05 08:41 | W.DCSUMMARY ---
Discharge Summary
Discharge Data
Date of Admission: 07/29/24
Date of Discharge: 08/05/24
Total time spent discharging patient (in min): 45
-
Pending Results: No
Hospital Course
hospital course:
54-year-old with history of asthma, schizophrenia on antipsychotic medications who presented to the emergency department with acute onset of abdominal pain and vomiting found to have a small bowel obstruction. Per CT scan the small bowel
obstruction is on the basis of adhesion. However patient denies any history of intra-abdominal surgery. He had a colonoscopy within the last year which showed polyps but otherwise no evidence of intermittent inflammatory bowel disease. Patient
denies inflammatory bowel disease symptoms. Patient denies any history of congenital disorders. In no clinical basis for additions in this patient. Radiology is mildly considered. However he has no signs of inflammatory bowel disease. He has no
signs of an acute infection. There are no masses noted on the CT scan. Given a transition point unlikely ileus and no basis for ileus with negative gallstones normal pancreas and normal lipase and lfts as well as no culprit medications. He was
admitted for treatment of SBO.
1. distended proximal bowel loops and stomach
- possible SBO raised by CT read: SMALL BOWEL OBSTRUCTION with a transition point in the right side of the midabdomen between distended proximal small bowel loops and collapsed distal ileal small bowel loops.
An adhesive band is the likely etiology of the obstruction.
Severe distention of jejunal small bowel loops and the stomach.
- no prior history to suggest adhesional disease (no surgery prior)
Reported improvement of nausea and vomiting while NG tube in place.
NG tube removed on 08/02, Then was transitioned to LRD and tolerated this.
Improved abdominal distention and pain.
Follow-up imaging with x-ray showed nonobstructive gas pattern.
He has tolerated Increase activity
The plan is to continue Bowel regimen as outpatient
2. Schizophrenia - Stable
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
However, Clozaril 'have contributed to ileus�SBO with its anticholinergic features' so disciplined bowel regimes as outpatient highly recommended.
Clozaril dose reduced.
Psychiatry input appreciated
3. DM II - stable
In hospital - holding glipizide and statin, using - sliding scale insulin q 6
Resume home meds at discharge
4. HTN - stable, but elevated as inpatient as plan was to hold lisinopril 5 for now, monitor bp
Resume lisinopril as outpatient
DVT PPX while inpatient was: SC heparin
Code while hospitalized was: Full
Discharge Plan
-
Patient Disposition: Home (Routine Discharge)
Discharge Diagnosis/Procedures: Ileus/SBO
Condition: Good
Diet: As tolerated and Low Residue
Activity: As tolerated
Driving Restrictions: As prior to admission
Bathing Restrictions: None
Other Services: VN
Referrals:
Doni Sheth MD [Family Provider] -
Prescriptions:
New
nicotine 21 mg/24 hr Patch 24 Hour
21 mg transdermal DAILY Qty: 30 0RF
polyethylene glycol 3350 17 gram powder in packet
17 g PO DAILY Qty: 30 0RF
Continued
docusate sodium 100 MG capsule
100 mg PO BID
divalproex 500 mg Tablet Extended Release 24 Hr
1,000 mg PO BID
glipizide 5 mg Tablet
5 mg PO BID
M.V.I. Adult
1 tab PO DAILY
Miralax
17 packet PO DAILY
lisinopril
5 mg PO DAILY
rosuvastatin
10 mg PO DAILY
tamsulosin
0.8 mg PO DAILY@1800
Changed
clozapine 100 MG tablet
450 mg PO HS Qty: 0 0RF
Discontinued
clozapine
600 mg PO HS
methocarbamol
500 mg PO BID
Discharge Orders:
Discharge Patient (As Directed); Ordered 08/05/24
Ordered By: Arturo Colin
Discharge Date and Time
Print Language: KOREAN
--- NOTE | 2024-08-05 10:00 | CM ---
Addendum entered by Haritha Posada 08/05/24 10:09:
aide to roll picker patient at 11am. no discharge summary requested.
Original Note:
Patient seen at bedside. Medicare IMM completed per patient 08/04/24 and patient with copy of form. Patient to call [facility] for transportation home [phone]. Patient lives with roommate and stated that he does not want [facility] support at this
time. CM will call [facility] to confirm discharge. Patient for discharge today. CM will continue to follow for discharge planning needs.
Plan; home with follow up from [facility].
[2024-08-05 11:51] VITALS: BP 130/82
== END 2024-08-05 12:10 | disposition home or self-care (01) | DRG 389 ==
LOC: 2 SOUTH 21:16
PROVIDERS: Internal Medicine; Nurse Practitioner; Radiology Diagnostic Radiology; ADMITTING PHYSICIAN Internal Medicine; ATTENDING PHYSICIAN Internal Medicine; CONSULT PHYSICIAN Internal Medicine; CONSULT PHYSICIAN Psychiatry & Neurology Psychiatry; CONSULT PHYSICIAN Surgery; EMERGENCY PHYSICIAN Student in an Organized Health Care Education/Training Program; FAMILY PHYSICIAN Family Medicine
PROC: 0D9670Z Drainage of Stomach with Drainage Device, Via Natural or Artificial Opening (ICD-10-PCS; 2024-07-29)
PROC: 0DH67UZ Insertion of Feeding Device into Stomach, Via Natural or Artificial Opening (ICD-10-PCS; 2024-07-30)
DX: K56.51 Intestinal adhesions [bands], with partial obstruction (principal); F20.89 Other schizophrenia; R45.851 Suicidal ideations; E78.00 Pure hypercholesterolemia, unspecified; F17.210 Nicotine dependence, cigarettes, uncomplicated; K56.7 Ileus, unspecified; I10 Essential (primary) hypertension; E66.9 Obesity, unspecified; J45.909 Unspecified asthma, uncomplicated; E11.9 Type 2 diabetes mellitus without complications; Z87.442 Personal history of urinary calculi; Z88.0 Allergy status to penicillin; Z88.8 Allergy status to other drugs, medicaments and biological substances; Z91.041 Radiographic dye allergy status; Z79.84 Long term (current) use of oral hypoglycemic drugs; Z68.34 Body mass index [BMI] 34.0-34.9, adult; Z86.0101 Personal history of adenomatous and serrated colon polyps
CPT/HCPCS: 43752; 71045; 74018; 74177; 80048; 80053; 80159; 80164; 82962; 83605; 83690; 83735; 85025; 85027; 87070; 93005; 96361; 96374; 96375; 99285; 99406; Q9967

== ENCOUNTER → 2025-02-24 06:55 | Outpatient (REF) | payer MEDICARE, OTHER, SELFPAY | LOC: PAVMRI 06:55 | PROVIDERS: ATTENDING PHYSICIAN Nurse Practitioner; PRIMARYCARE PHYSICIAN Family Medicine | DX: R41.3 Other amnesia (principal) | CPT/HCPCS: 70551 ==